=== PATIENT | female | born 1960 | race African-American/Black ===

== ENCOUNTER 2016-10-10 23:55 | Inpatient (IN) | payer BC ==
--- NOTE | 2016-10-11 00:52 | PDOC ---
History of Present Illness - General Chief Complaint: Shortness of Breath Stated Complaint: SOB/CHEST PAIN Time Seen by Provider: 10/11/16 00:51 History Source: Patient - History of Present Illness Initial Comments: 10/11/16 02:30 56 year old female c/o shortness of breath and chest pain that is worse in the last 2 days. reports chest pain " heaviness, my heart is hurting" patient reports that 3 weeks prior patient has cold like symptoms and fever which resolved. patient with history of CHF, hypothyroidism, pacemaker, hypercholesteremia, IDDM Past History - Past Medical History Allergies/Adverse Reactions: Allergies Allergy/AdvReac Type Severity Reaction Status Date / Time No Known Allergies Allergy Verified 08/12/15 23:45 Home Medications: Ambulatory Orders Amoxicillin/Potassium Clav [Augmentin 875-125 Tablet] 1 each PO BID 08/12/15 Aspirin [Eben Chewable] 81 mg PO DAILY 08/12/15 Atorvastatin Ca [Lipitor -] 10 mg PO HS 08/12/15 Carvedilol [Coreg -] 25 mg PO BID 08/12/15 Cholecalciferol (Vitamin D3) [Vitamin D3] 5,000 unit PO DAILY 08/12/15 Eplerenone [Inspra] 25 mg PO DAILY 08/12/15 Exenatide Microspheres [Bydureon Pen] 2 mg SQ WEEKLY 08/12/15 Furosemide [Lasix -] 40 mg PO DAILY 08/12/15 Insulin (LOG) Aspart [NovoLOG -] 0 unit SQ DAILY 08/12/15 Levothyroxine [Synthroid -] 75 mcg PO DAILY 08/12/15 Levothyroxine [Synthroid -] 75 mcg PO DAILY 08/12/15 Lisinopril 10 mg PO DAILY 08/12/15 Montelukast Na [Singulair -] 10 mg PO HS 08/12/15 Anemia: No Asthma: (bronchitis) Cancer: No Cardiac Disorders: Yes (decreased LVF) CVA: No COPD: No CHF: No Dementia: No Diabetes: Yes (insulin pump; diab retinopathy; macular edema) GI Disorders: Yes (hemorrrhoids; hernia) Disorders: No HTN: No Hypercholesterolemia: No Liver Disease: No Seizures: No Thyroid Disease: Yes (HYPO.) - Surgical History Abdominal Surgery: Yes Appendectomy: No Cardiac Surgery: Yes (defib placed 07/10/15 after viral infection) Cholecystectomy: No Lung Surgery: (PNEUMONIA AND BRONCHITIS 2015; NO SURGERIES) Neurologic Surgery: No Orthopedic Surgery: No - Immunization History Td Vaccination: No TDAP Vaccination: No Immunization Up to Date: Yes (flu and pna 2014) - Psycho/Social/Smoking Cessation Hx Anxiety: Yes Suicidal Ideation: No Smoking Status: No Smoking History: Never smoked Have you smoked in the past 12 months: No Number of Cigarettes Smoked Daily: 0 If you are a former smoker, when did you quit?: 10 yrs Hx Alcohol Use: No Drug/Substance Use Hx: No Substance Use Type: None Hx Substance Use Treatment: No *Physical Exam - Vital Signs 10/11/16 03:45 Last Vital Signs Temp Pulse Resp BP Pulse Ox 98.1 F 91 H 19 141/75 96 10/11/16 00:10 10/11/16 00:10 10/11/16 00:10 10/11/16 00:10 10/11/16 00:10 - Physical Exam General Appearance: Yes: Appropriately Dressed Respiratory/Chest: positive: Lungs Clear, Normal Breath Sounds Cardiovascular: positive: Regular Rhythm, Regular Rate. negative: S1, S2, Edema , JVD, Murmur, Bradycardia, Tachycardia, Diastolic Murmur, Systolic Murmur, Gallop/S3, Gallop/S4, Irregularly Irregular, Irregular, Other Gastrointestinal/Abdominal: positive: Normal Bowel Sounds, Soft Extremity: positive: Normal Capillary Refill, Normal Inspection, Normal Range of Motion Integumentary: positive: Normal Color, Dry, Warm Neurologic: positive: Fully Oriented, Alert, Normal Mood/Affect Heart Score/ECG Review - ECG Intrepretation Rhythm: Regular Rhythm Comment:: 10/11/16 02:31 NSR HRT 83 prolonged QT nonspecific t wave abnormality ED Treatment Course - LABORATORY CBC & Chemistry Diagram: 10/11/16 02:10 10/11/16 02:10 - RADIOLOGY Chest X-Ray Result: No Infiltrates Medical Decision Making - Medical Decision Making 10/11/16 03:51 A: chest pain P": cbc cmp cardiac enzyems chest xray d-dimer BNP 10/11/16 03:51 patient CTA neg for PE. patient signed out to Dr. Lugo for further management of care *DC/Admit/Observation/Transfer Diagnosis at time of Disposition: Chest pain Qualifiers: Chest pain type: unspecified Qualified Code(s): R07.9 - Chest pain, unspecified - Discharge Dispostion Admit: Yes - Referrals Referrals: STAFF,NOT ON [Primary Care Provider] -
[2016-10-11] MEDS ORDERED: ALBUTEROL SO4 2.5/IPRATROPIUM 0.5 INH SOL 3 ML VIAL.NEB. NEB ONE ×2 (02:09→20:06)
[2016-10-11 02:23] VITALS: BMI 35.0
[2016-10-11 02:23] LABS: BASOPHIL 0.7 % (0-2.0); EOSINOPHIL 1.2 % (0-4.5); MCH 26.9 pg (25.7-33.7); MCHC 32.5 g/dl (32.0-36.0); MEAN CELL VOLUME 82.7 fl (80-96); PLATELET COUNT 262 K/MM3 (134-434); RDW 15.8 % (11.6-15.6); WHITE BLOOD COUNT 8.9 K/mm3 (4.0-10.0)
[2016-10-11 02:36] LABS: INR 0.96 (0.82-1.09); PROTHROMBIN TIME (PATIENT) 10.6 SEC (9.98-11.88)
[2016-10-11 02:56] LABS: ALBUMIN 3.8 g/dl (3.4-5.0); ANION GAP 10 (8-16); BILIRUBIN,TOTAL 0.3 mg/dL (0.2-1.0); CALCIUM 8.7 mg/dL (8.5-10.1); CO2 25 mmol/L (21-32); GLUCOSE,RANDOM 144 mg/dL (74-106); MAGNESIUM 2.2 mg/dL (1.8-2.4); SGOT/AST 13 U/L (15-37); SGPT/ALT 28 U/L (12-78); TOT PROT 7.3 g/dl (6.4-8.2)
[2016-10-11 02:59] LABS: ALK PHOS 120 U/L (45-117); TROPONIN I < 0.02 ng/ml (0.00-0.05)
[2016-10-11] MEDS ORDERED: INDOMETHACIN 50 MG CAPSULE PO ONE (05:49)
[2016-10-11] MEDS ORDERED: ASPIRIN 81 MG CHEWABLE TABLETS PO ONE (05:49)
[2016-10-11] MEDS ORDERED: ASPIRIN 81 MG CHEWABLE TABLETS ONE (06:20)
--- NOTE | 2016-10-11 10:40 | PN ---
Progress Note (short form) - Note Progress Note: Chief Complaint: Events noted, notes reviewed, chest pain syndrome in a patient with known history of dilated non ischemic cardiomyopathy History of Present Illness: Seen and examined on telemetry. Full consult dictated Medications: See attached list Review of Systems - Review of Systems Constitutional: denies: Chills, Fever Cardiovascular: As noted above Respiratory: reports: Cough and Sputum Production Gastrointestinal: denies: Nausea, Vomiting, Diarrhea, Constipation or Abdominal Pain Musculoskeletal: No symptoms reported Neurological: denies: Dizziness or Headaches Vital Signs: Last Vital Signs Temp Pulse Resp BP Pulse Ox 98.4 F 87 18 134/77 95 10/11/16 07:13 10/11/16 07:13 10/11/16 07:13 10/11/16 07:13 10/11/16 07:13 Intake & Output 10/08/16 10/09/16 10/10/16 10/11/16 23:59 23:59 23:59 23:59 Weight 204 lb Constitutional: No Distress, Calm Neck: Supple Negative JVD Respiratory: Clear to A&P Bilaterally Cardiovascular: S1 S2 Regular Rate and Rhythm Grade 1/6 ADAN Gastrointestinal: Soft Benign Normal Bowel Sounds Ext: Negative Edema Lab Data: CBC, BMP 10/11/16 02:10 10/11/16 02:10 Troponin, BNP 10/11/16 02:10 Troponin I < 0.02 B-Natriuretic Peptide 140.55 H INR, PTT INR 0.96 (0.82-1.09) 10/11/16 02:10 Hepatic Panel Total Bilirubin 0.3 mg/dL (0.2-1.0) 10/11/16 02:10 AST 13 U/L (15-37) L 10/11/16 02:10 ALT 28 U/L (12-78) 10/11/16 02:10 Alkaline Phosphatase 120 U/L (45-117) H D 10/11/16 02:10 Albumin 3.8 g/dl (3.4-5.0) 10/11/16 02:10 Assessment/Plan ASSESSMENT: 1. Chest pain syndrome in a patient with known history of dilated non-ischemic cardiomyopathy, sub-endomyocardial ischemia in a dilated heart a differential 2. Dilated non-ischemic cardiomyopathy with chronic class I-II NYHA classification LV failure, compensated 3. HTN 4. DM 5. Hypercholesterolemia 6. Hypothyroidism PLAN: 1. Continue Coreg 2. Continue Entresto 3. Continue Lasix and Inspra 4. Continue Zocor 5. Attempt the addition of Ranexa considering the noted presentation 6. Continue ASA 7. Echocardiography to evaluate LV function and valvular function Kalyani Grant MD
[2016-10-11] MEDS ORDERED: EPLERENONE 25 MG TABLET PO SCH (11:00)
[2016-10-11] MEDS ORDERED: ASPIRIN 81 MG CHEWABLE TABLETS PO SCH (11:00)
[2016-10-11] MEDS: FUROSEMIDE 40 MG TABLET (FP) PO SCH (11:44)
[2016-10-11] MEDS: RANOLAZINE E.R. 500 MG TABLET (FP) PO SCH ×2 (11:44→22:14)
[2016-10-11] MEDS: CARVEDILOL 25 MG TABLET (FP) PO SCH ×2 (11:44→22:14)
[2016-10-11] MEDS: SACUBITRIL/VALSARTAN 24 MG-26 MG TABLET PO SCH ×2 (11:47→22:46)
--- NOTE | 2016-10-11 11:49 | HP ---
Admitting History and Physical - Primary Care Physician PCP: Dr Reol Lugo( [facility]) - Admission Chief Complaint: Chest pain/Fever 10 days/ Dilated cardiomyopathy/Asthma excerbation/ Decompensated CHF History of Present Illness: 56 year old female had travelled to [place] and had fever of 101 for 10 days, Pt was Rx there with Zithromax and Pt managed to come back but was having severe cough/ Bronchitis with Productuve yellow sputum with c/o shortness of breath and chest pain that is worse in the last 2 days. reports chest pain " heaviness, my heart is hurting" . Pt is still having chest pain/ Retrosternal hevy ness 11/26. Pain is more on coughing patient with history of CHF, hypothyroidism, pacemaker, hypercholesteremia, IDDM , S/P Hystrectomy, Colostomy/ closure, Obesity,S/P Cath at [facility]. History Source: Patient Limitations to Obtaining History: No Limitations - Past Medical History Cardiovascular: Yes: CHF, HTN, Other (Dilated cardiomyopathy, pacemaker) Pulmonary: Yes: Asthma, Bronchitis, Pneumonia Gastrointestinal: Yes: Other (Colostomy/ Closure) ...: No Endocrine: Yes: Diabetes Mellitus, Hypothyroidism - Past Surgical History Past Surgical History: Yes: Colostomy, Hysterectomy - Smoking History Smoking history: Never smoked Have you smoked in the past 12 months: No Aproximately how many cigarettes per day: 0 If you are a former smoker, when did you quit?: 10 yrs - Alcohol/Substance Use Hx Alcohol Use: No History of Substance Use: reports: None - Social History ADL: Independent Occupation: psychiatric technician History of Recent Travel: Yes ([place] and [place]) Home Medications - Allergies Allergies/Adverse Reactions: Allergies Allergy/AdvReac Type Severity Reaction Status Date / Time No Known Allergies Allergy Verified 08/12/15 23:45 - Home Medications Home Medications: Ambulatory Orders Aspirin [Eben Chewable] 81 mg PO DAILY 08/12/15 Carvedilol [Coreg -] 25 mg PO BID 08/12/15 Cholecalciferol (Vitamin D3) [Vitamin D3] 5,000 unit PO DAILY 08/12/15 Eplerenone [Inspra] 25 mg PO DAILY 08/12/15 Exenatide Microspheres [Bydureon Pen] 2 mg SQ WEEKLY 08/12/15 Furosemide [Lasix -] 40 mg PO DAILY 08/12/15 Insulin (LOG) Aspart [NovoLOG -] 0 unit SQ DAILY 08/12/15 Levothyroxine [Synthroid -] 75 mcg PO DAILY 08/12/15 Lisinopril 10 mg PO DAILY 08/12/15 Montelukast Na [Singulair -] 10 mg PO HS 08/12/15 Simvastatin 20 mg PO HS 10/11/16 Family Disease History - Family Disease History Family Disease History: Heart Disease: Father (Cirrhosis, CAD), Respiratory: Mother (Chronic Emphysema), Other: Father Review of Systems - Review of Systems Constitutional: reports: Fever, Malaise, Weakness Respiratory: denies: Exercise Intolerance (Pt had Fever of 101 for 10 days improved with Mildly with Zithromax from [place] Still Severe cough with SOB/ Wheezing) Gastrointestinal: reports: Other (S/P colostomy and closure) Genitourinary: reports: No Symptoms Breasts: reports: No Symptoms Reported Musculoskeletal: reports: Back Pain Neurological: reports: No Symptoms Physical Examination Vital Signs: Vital Signs Temperature 98.8 F 10/11/16 08:58 Pulse Rate 80 10/11/16 08:58 Respiratory Rate 20 10/11/16 08:58 Blood Pressure 120/68 10/11/16 08:58 O2 Sat by Pulse Oximetry (%) 97 10/11/16 08:58 Constitutional: Yes: No Distress Eyes: Yes: Conjunctiva Clear, EOM Intact HENT: Yes: Atraumatic, Normocephalic Neck: Yes: Supple, Trachea Midline Cardiovascular: Yes: Regular Rate and Rhythm Respiratory: Yes: Regular, CTA Bilaterally, Wheezes (Mild wheezing), Other (Pt cough /Wheezing Improved with nebulized RX) Gastrointestinal: Yes: Normal Bowel Sounds, Soft Edema: No Neurological: Yes: Alert, Cran Nerves II-XII Intact Problem List - Problems (1) Chest pain Code(s): R07.9 - CHEST PAIN, UNSPECIFIED Qualifiers: Chest pain type: unspecified Qualified Code(s): R07.9 - Chest pain, unspecified (2) Chronic systolic (congestive) heart failure Code(s): I50.22 - CHRONIC SYSTOLIC (CONGESTIVE) HEART FAILURE (3) Cardiomyopathy Code(s): I42.9 - CARDIOMYOPATHY, UNSPECIFIED (4) Acute bronchitis Code(s): J20.9 - ACUTE BRONCHITIS, UNSPECIFIED (5) Asthma exacerbation Code(s): J45.901 - UNSPECIFIED ASTHMA WITH (ACUTE) EXACERBATION (6) Diabetes mellitus, insulin dependent (IDDM), uncontrolled Code(s): E10.65 - TYPE 1 DIABETES MELLITUS WITH HYPERGLYCEMIA (7) Hypothyroid Code(s): E03.9 - HYPOTHYROIDISM, UNSPECIFIED Qualifiers: Hypothyroidism type: unspecified Qualified Code(s): E03.9 - Hypothyroidism, unspecified (8) Obesity Code(s): E66.9 - OBESITY, UNSPECIFIED (9) Pneumonia Code(s): J18.9 - PNEUMONIA, UNSPECIFIED ORGANISM Assessment/Plan (1) Chest painR/O ACS/PE/Teitz syndrome: CT Angio Negative Code(s): R07.9 - CHEST PAIN, UNSPECIFIED Qualifiers: Chest pain type: unspecified Qualified Code(s): R07.9 - Chest pain, unspecified (2) Chronic systolic (congestive) heart failure Code(s): I50.22 - CHRONIC SYSTOLIC (CONGESTIVE) HEART FAILURE (3) Cardiomyopathy/ S/P Cath Code(s): I42.9 - CARDIOMYOPATHY, UNSPECIFIED (4) Acute bronchitis: ID consult Pt is patially Rx at [place] still has residual severe cough and productive Yellow sputum On Unasyn Now Code(s): J20.9 - ACUTE BRONCHITIS, UNSPECIFIED (5) Asthma exacerbation: Secondary to Pneumonia partially Rx at [place] Visit Recently Code(s): J45.901 - UNSPECIFIED ASTHMA WITH (ACUTE) EXACERBATION (6) Diabetes mellitus, insulin dependent (IDDM), uncontrolled Code(s): E10.65 - TYPE 1 DIABETES MELLITUS WITH HYPERGLYCEMIA (7) Hypothyroid Code(s): E03.9 - HYPOTHYROIDISM, UNSPECIFIED Qualifiers: Hypothyroidism type: unspecified Qualified Code(s): E03.9 - Hypothyroidism, unspecified (8) Obesity Code(s): E66.9 - OBESITY, UNSPECIFIED (9) Pneumonia Code(s): J18.9 - PNEUMONIA, UNSPECIFIED ORGANISM
--- NOTE | 2016-10-11 13:16 | CONS ---
DATE OF CONSULTATION: 10/11/2016 REQUESTING PHYSICIAN: Castillo Lugo MD CHIEF COMPLAINT: Chest discomfort. A 56-year-old, morbidly obese female of descent with known history of dilated nonischemic cardiomyopathy post viral syndrome (right and left cardiac catheterization was performed at [facility] October 29, 2014), hypertensive cardiovascular disease, diabetes mellitus, hypercholesterolemia, who presented to [facility] with chest discomfort which has been noted for the last several days. Chest discomfort described as heaviness without any radiation or associated symptomatology other than residual cough which has been noted post an upper respiratory tract infection. Patient reports dyspnea with moderate physical exertion. Patient denies any orthopnea, paroxysmal nocturnal dyspnea, or peripheral edema. Patient denies any palpitations, dizziness, lightheadedness, or syncope. Patient reports fatigue and tiredness. Patient just returned from a trip to [place]. In the emergency room, CTA was performed which was negative for pulmonary thromboembolism. PAST MEDICAL HISTORY: Dilated nonischemic cardiomyopathy with class I to II [place] Heart Association classification left ventricular failure, right and left cardiac catheterization coronary angiography performed October 29, 2014, hypertension cardiovascular disease, diabetes mellitus, hypercholesterolemia. PAST SURGICAL HISTORY: Myomectomies x2, hysterectomy complicated by intraabdominal abscess. SOCIAL HISTORY: Denies smoking. FAMILY HISTORY: No family history of premature coronary artery disease. ALLERGIES: None reported. MEDICAL THERAPY AT HOME: Included aspirin 81 mg once a day, insulin as prescribed, Coreg 25 mg twice a day, Entresto 24/26 mg twice a day, eplerenone 25 mg once a day, Lasix 40 mg once a day, Singulair 10 mg once a day, simvastatin 20 mg once a day, Synthroid for hypothyroidism 75 mcg once a day, vitamin D 5000 international units once daily. REVIEW OF SYSTEMS: Head and Neck: Denies headache, photophobia, blurring of vision. Respiratory: Reports cough productive of clear sputum. Cardiovascular: As noted above. Gastrointestinal: Denies nausea, vomiting, diarrhea, abdominal discomfort. Genitourinary: No symptoms reported. Musculoskeletal: No symptoms reported. PHYSICAL EXAMINATION: Vital Signs: Blood pressure is 134/77 mmHg, pulse rate is 87 beats per minute. Head and Neck: Pupils equal and reactive to light and accommodation. Extraocular muscles are intact. Anicteric sclerae. Negative JVD. No bruit appreciated. Chest: Clear to auscultation and percussion. Cardiovascular: S1, S2 regular. Grade 1/6 systolic ejection murmur. No clicks or gallops. Abdomen: Soft, benign. Active bowel sounds. Extremities: Negative edema. Intact distal pulses. No calf tenderness. Electrocardiogram reveals sinus rhythm with increased voltage and nonspecific T-wave abnormality. Chest x-ray report was noted. CBC revealed white cell count 8.9, hemoglobin 12.2, platelet count 262. Basic metabolic profile revealed sodium 142, potassium 4.0, BUN of 14, creatinine 1.0, glucose 144. B type natriuretic peptide was 140.55. Troponin-I less than 0.02. ASSESSMENT: 1. Chest pain syndrome in a patient with known history of dilated and ischemic cardiomyopathy. Subendocardial myocardial ischemia and a dilated heart to be considered as the differential. 2. Dilated nonischemic cardiomyopathy with chronic class I to II [place] Heart Association classification left ventricular failure, compensated. 3. Hypertensive cardiovascular disease. 4. Diabetes mellitus. 5. Hypercholesterolemia. 6. Hypothyroidism. PLAN: 1. Continuation of Coreg therapy. 2. Continuation of Entresto therapy. 3. Continuation of Lasix and Inspra therapy. 4. Continuation of Zocor or equivalent statin therapy. 5. Attempt the addition of Ranexa therapy, considering the above-noted clinical presentation. 6. Continuation of aspirin therapy. 7. Echocardiography for evaluation of left ventricular size and function and also evaluation of valvular function. Thank you for the kind referral. CLIFFORD BERKOWITZ M.D. [id number]
--- NOTE | 2016-10-11 20:29 | CONSULT ---
Consult Consult Specialty:: infectious diseases Referred by:: DR Vegas Reason for Consultation:: pneumonia,bronchitis - History of Present Illness Chief Complaint: cough,chest pain History of Present Illness: 56 year old female c/o shortness of breath and chest pain that is worse in the last 2 days. reports chest pain " heaviness, my heart is hurting" patient reports that 3 weeks prior patient has cold like symptoms and fever which resolved. patient with history of CHF, hypothyroidism, pacemaker, hypercholesteremia, IDDM according to the patient she had travelled back to [place] and fell immediately sick with high fevers and cough with yellowish sputum production patient initially took motrin and tylenolol but her symptoms did not resolve. she then started zithromax and started feeling better and fever resolved. patient mentions that she has again started to cough but denies fever or sputum production but mentions that her chest is hurting she has hoarse cough and still ahs pain in the chest - History Source History Provided By: Patient Limitations to Obtaining History: No Limitations - Past Medical History Cardio/Vascular: Yes: CHF, HTN Pulmonary: Yes: Asthma, Bronchitis, Pneumonia Gastrointestinal: Yes: Other ...: No Endocrine: Yes: Diabetes Mellitus, Hypothyroidism - Past Surgical History Past Surgical History: Yes: Colostomy, Hysterectomy - Alcohol/Substance Use Hx Alcohol Use: No History of Substance Use: reports: None - Smoking History Smoking history: Never smoked Have you smoked in the past 12 months: No Aproximately how many cigarettes per day: 0 If you are a former smoker, when did you quit?: 10 yrs - Social History ADL: Independent Occupation: machine operator farmworker History of Recent Travel: Yes ([place] and [place]) Home Medications - Allergies Allergies/Adverse Reactions: Allergies Allergy/AdvReac Type Severity Reaction Status Date / Time No Known Allergies Allergy Verified 08/12/15 23:45 - Home Medications Home Medications: Ambulatory Orders Aspirin [Eben Chewable] 81 mg PO DAILY 08/12/15 Carvedilol [Coreg -] 25 mg PO BID 08/12/15 Cholecalciferol (Vitamin D3) [Vitamin D3] 5,000 unit PO DAILY 08/12/15 Eplerenone [Inspra] 25 mg PO DAILY 08/12/15 Exenatide Microspheres [Bydureon Pen] 2 mg SQ WEEKLY 08/12/15 Furosemide [Lasix -] 40 mg PO DAILY 08/12/15 Insulin (LOG) Aspart [NovoLOG -] 0 unit SQ DAILY 08/12/15 Levothyroxine [Synthroid -] 75 mcg PO DAILY 08/12/15 Lisinopril 10 mg PO DAILY 08/12/15 Montelukast Na [Singulair -] 10 mg PO HS 08/12/15 Simvastatin 20 mg PO HS 10/11/16 Family Disease History - Family Disease History Family Disease History: Heart Disease: Father (Cirrhosis, CAD), Respiratory: Mother (Chronic Emphysema), Other: Father Review of Systems - Review of Systems Constitutional: reports: Weakness, Other Eyes: reports: No Symptoms HENT: reports: No Symptoms Neck: reports: No Symptoms Cardiovascular: reports: Chest Pain Respiratory: reports: Cough, SOB, Other Gastrointestinal: reports: No Symptoms Genitourinary: reports: No Symptoms Musculoskeletal: reports: No Symptoms Integumentary: reports: No Symptoms Neurological: reports: No Symptoms Endocrine: reports: No Symptoms Hematology/Lymphatic: reports: No Symptoms Psychiatric: reports: No Symptoms Physical Exam Vital Signs: Vital Signs Temperature 98.0 F 10/11/16 17:00 Pulse Rate 95 H 10/11/16 17:00 Respiratory Rate 20 10/11/16 17:00 Blood Pressure 129/70 10/11/16 17:00 O2 Sat by Pulse Oximetry (%) 97 10/11/16 08:58 Constitutional: Yes: Well Nourished, Obese Eyes: Yes: Conjunctiva Clear HENT: Yes: Atraumatic, Normocephalic Neck: Yes: Supple, Trachea Midline Cardiovascular: Yes: Regular Rate and Rhythm Respiratory: Yes: Poor Air Entry, Rhonchi Gastrointestinal: Yes: Normal Bowel Sounds, Soft Musculoskeletal: Yes: WNL Extremities: Yes: WNL Neurological: Yes: Alert, Oriented Psychiatric: Yes: Alert, Oriented Imaging - Results Chest X-ray: Report Reviewed, Image Reviewed Cat Scan: Report Reviewed, Image Reviewed Assessment/Plan chest pain r/o pneumonia cough this could be lingering pneumonia or patient is having bronchitits maxim will start patient on iv abx will await for cardiology will see how patient does and then decide about abx if it can be switched to oral
[2016-10-11] MEDS ORDERED: PT OWN MED DRAWER 7, Y5N ONE (21:01)
[2016-10-11] MEDS: AMPICILLIN NA/SULBACTAM NA 3 GM in SODIUM CHLORIDE 100 ML IVPB SCH (22:11)
[2016-10-11] MEDS: ATORVASTATIN CA 10 MG TABLET (FP) PO SCH ×2 (22:14→22:19)
[2016-10-11] MEDS: MONTELUKAST NA 10 MG TABLET PO SCH (22:14)
[2016-10-11] MEDS: INDOMETHACIN 25 MG CAPSULE PO SCH (22:14)
[2016-10-12] MEDS: ALBUTEROL SO4 2.5/IPRATROPIUM 0.5 INH SOL 3 ML VIAL.NEB. NEB SCH ×5 (00:17→23:37)
[2016-10-12] MEDS: AMPICILLIN NA/SULBACTAM NA 3 GM in SODIUM CHLORIDE 100 ML IVPB SCH ×3 (02:30→17:16)
[2016-10-12] MEDS: LEVOTHYROXINE NA 75 MCG TABLET (FP) PO SCH (06:20)
[2016-10-12 08:08] LABS: BASOPHIL 0.5 % (0-2.0); EOSINOPHIL 1.2 % (0-4.5); MCH 26.4 pg (25.7-33.7); MEAN CELL VOLUME 82.5 fl (80-96); MEAN PLT VOLUME 9.8 fl (7.5-11.1); NEUTROPHILS 59.5 % (42.8-82.8); PLATELET COUNT 246 K/MM3 (134-434); RDW 15.8 % (11.6-15.6); WHITE BLOOD COUNT 7.1 K/mm3 (4.0-10.0)
--- NOTE | 2016-10-12 08:16 | EKG ---
Test Reason : Blood Pressure : / mmHG Vent. Rate : 059 BPM Atrial Rate : 059 BPM P-R Int : 170 ms QRS Dur : 096 ms QT Int : 458 ms P-R-T Axes : 040 003 -18 degrees QTc Int : 453 ms SINUS BRADYCARDIA MODERATE VOLTAGE CRITERIA FOR LVH, MAY BE NORMAL VARIANT NONSPECIFIC T WAVE ABNORMALITY ABNORMAL ECG WHEN COMPARED WITH ECG OF 13-AUG-2015 00:33, VENT. RATE HAS DECREASED BY 31 BPM T WAVE VARIATION Confirmed by KADEN LIAO MD ([id number]) on 10/12/2016 8:15:53 AM Referred By: FABIANA ARAUJO Confirmed By:KADEN LIAO MD
--- NOTE | 2016-10-12 08:24 | EKG ---
Test Reason : Blood Pressure : / mmHG Vent. Rate : 083 BPM Atrial Rate : 083 BPM P-R Int : 186 ms QRS Dur : 094 ms QT Int : 392 ms P-R-T Axes : 062 -12 045 degrees QTc Int : 460 ms NORMAL SINUS RHYTHM MODERATE VOLTAGE CRITERIA FOR LVH, MAY BE NORMAL VARIANT NONSPECIFIC T WAVE ABNORMALITY PROLONGED QT ABNORMAL ECG WHEN COMPARED WITH ECG OF 13-AUG-2015 00:33, T WAVE VARIATION Confirmed by YANNI PEGUERO, KADEN ([id number]) on 10/12/2016 8:23:34 AM Referred By: Confirmed By:KADEN LIAO MD
[2016-10-12 09:11] LABS: ALBUMIN 3.7 g/dl (3.4-5.0); BILIRUBIN,TOTAL 0.4 mg/dL (0.2-1.0); CALCIUM 8.9 mg/dL (8.5-10.1); COCKROFT - GAULT 85.3995; CREATININE 1.1 mg/dL (0.55-1.02); TOT PROT 6.9 g/dl (6.4-8.2)
[2016-10-12] MEDS: ASPIRIN COATED 81 MG TABLET.EC PO SCH (09:23)
[2016-10-12] MEDS: CARVEDILOL 25 MG TABLET (FP) PO SCH ×2 (09:23→21:32)
[2016-10-12] MEDS: RANOLAZINE E.R. 500 MG TABLET (FP) PO SCH ×2 (09:24→21:32)
[2016-10-12] MEDS: SACUBITRIL/VALSARTAN 24 MG-26 MG TABLET PO SCH ×2 (09:24→22:23)
[2016-10-12] MEDS: EPLERENONE 25 MG TABLET PO SCH (09:24)
[2016-10-12] MEDS: INDOMETHACIN 25 MG CAPSULE PO SCH (09:24)
[2016-10-12] MEDS: FUROSEMIDE 40 MG TABLET (FP) PO SCH (09:24)
--- NOTE | 2016-10-12 09:24 | PN ---
Progress Note, Physician History of Present Illness: Chest pain and dyspnea resolving. - Current Medication List Current Medications: Active Medications Albuterol/Ipratropium (Duoneb -) 1 amp NEB QIDR [facility] Stop: 10/19/16 00:00 Last Admin: 10/12/16 07:03 Dose: 1 amp Aspirin (Ecotrin -) 81 mg PO DAILY [facility] Atorvastatin Calcium (Lipitor -) 10 mg PO [facility] Last Admin: 10/11/16 22:19 Dose: Not Given Carvedilol (Coreg -) 25 mg PO BID [facility] Last Admin: 10/11/16 22:14 Dose: 25 mg Eplerenone (Eplerenone) 25 mg PO DAILY [facility] Furosemide (Lasix -) 40 mg PO DAILY [facility] Last Admin: 10/11/16 11:44 Dose: 40 mg Ampicillin Sodium/Sulbactam (Sodium 3 gm/ Sodium Chloride) 100 mls @ 200 mls/ hr IVPB Q8H-IV [facility] Last Admin: 10/12/16 02:30 Dose: 200 mls/hr Indomethacin (Indocin -) 25 mg PO BID [facility] Last Admin: 10/11/16 22:14 Dose: 25 mg Levothyroxine Sodium (Synthroid -) 75 mcg PO DAILY@0700 [facility] Last Admin: 10/12/16 06:20 Dose: 75 mcg Montelukast Sodium (Singulair -) 10 mg PO [facility] Last Admin: 10/11/16 22:14 Dose: 10 mg Ranolazine (Ranexa -) 500 mg PO BID [facility] Last Admin: 10/11/16 22:14 Dose: 500 mg - Objective Vital Signs: Vital Signs Temperature 98.1 F 10/12/16 06:44 Pulse Rate 63 10/12/16 06:44 Respiratory Rate 18 10/12/16 06:44 Blood Pressure 130/66 10/12/16 06:44 O2 Sat by Pulse Oximetry (%) 99 10/11/16 20:36 Constitutional: Yes: No Distress, Calm Neck: Yes: Supple Cardiovascular: Yes: Regular Rate and Rhythm Respiratory: Yes: Regular, CTA Bilaterally Gastrointestinal: Yes: Normal Bowel Sounds, Soft, Abdomen, Obese Edema: No Labs: CBC, BMP 10/12/16 05:40 10/12/16 05:40 INR, PTT INR 0.96 (0.82-1.09) 10/11/16 02:10 - ....Imaging EKG: Report Reviewed (Tele: SR) Problem List - Problems (1) Chest pain Code(s): R07.9 - CHEST PAIN, UNSPECIFIED Qualifiers: Chest pain type: unspecified Qualified Code(s): R07.9 - Chest pain, unspecified (2) Diabetes mellitus Code(s): E11.9 - TYPE 2 DIABETES MELLITUS WITHOUT COMPLICATIONS Qualifiers: Diabetes mellitus type: type 2 (3) HTN (hypertension) Code(s): I10 - ESSENTIAL (PRIMARY) HYPERTENSION Qualifiers: Hypertension type: essential hypertension Qualified Code(s): I10 - Essential (primary) hypertension (4) Hypothyroid Code(s): E03.9 - HYPOTHYROIDISM, UNSPECIFIED Qualifiers: Hypothyroidism type: unspecified Qualified Code(s): E03.9 - Hypothyroidism, unspecified (5) Chronic systolic (congestive) heart failure Code(s): I50.22 - CHRONIC SYSTOLIC (CONGESTIVE) HEART FAILURE Assessment/Plan 10/11/3016 Echo: Nl LV size with severely decreased LV fxn, unable to assess valve pathology 1. Chest pain syndrome in a patient with known history of non-ischemic cardiomyopathy with subendomyocardial ischemia injury 2. Non-ischemic cardiomyopathy with chronic class I-II NYHA classification LV failure s/p ICD, compensated 3. HTN 4. DM 5. Hypercholesterolemia 6. Hypothyroidism PLAN: 1. Continue Coreg 25 bid 2. Continue Entresto 24/26 bid with uptitration as tolerated 3. Continue Lasix 40 qd and Inspra 25 qd 4. Continue Lipitor 10 qhs 5. Ranexa 500 bid added considering the noted presentation 6. Continue ASA 81 qd 7. Recommend d/c Indocin, presentation inconsistent with pericarditis 8. Continue to ambulate and discharge planning, f/u with Dr. Sims at [facility].
--- NOTE | 2016-10-12 11:51 | EKG ---
Test Reason : Blood Pressure : / mmHG Vent. Rate : 077 BPM Atrial Rate : 077 BPM P-R Int : 174 ms QRS Dur : 094 ms QT Int : 408 ms P-R-T Axes : 062 -05 068 degrees QTc Int : 461 ms NORMAL SINUS RHYTHM VOLTAGE CRITERIA FOR LEFT VENTRICULAR HYPERTROPHY NONSPECIFIC T WAVE ABNORMALITY PROLONGED QT ABNORMAL ECG WHEN COMPARED WITH ECG OF 11-OCT-2016 11:49, NO SIGNIFICANT CHANGE WAS FOUND Confirmed by JD PHAN MD ([id number]) on 10/12/2016 11:50:37 AM Referred By: Rona SAWYER Confirmed By:JD PHAN MD
--- NOTE | 2016-10-12 12:43 | PN ---
Progress Note, Physician History of Present Illness: patient sounding better cough less no complaints - Current Medication List Current Medications: Active Medications Albuterol/Ipratropium (Duoneb -) 1 amp NEB QIDR [facility] Stop: 10/19/16 00:00 Last Admin: 10/12/16 11:42 Dose: 1 amp Aspirin (Ecotrin -) 81 mg PO DAILY [facility] Last Admin: 10/12/16 09:23 Dose: 81 mg Atorvastatin Calcium (Lipitor -) 10 mg PO [facility] Last Admin: 10/11/16 22:19 Dose: Not Given Carvedilol (Coreg -) 25 mg PO BID [facility] Last Admin: 10/12/16 09:23 Dose: 25 mg Eplerenone (Eplerenone) 25 mg PO DAILY [facility] Last Admin: 10/12/16 09:24 Dose: 25 mg Furosemide (Lasix -) 40 mg PO DAILY [facility] Last Admin: 10/12/16 09:24 Dose: 40 mg Ampicillin Sodium/Sulbactam (Sodium 3 gm/ Sodium Chloride) 100 mls @ 200 mls/ hr IVPB Q8H-IV [facility] Last Admin: 10/12/16 09:25 Dose: 200 mls/hr Levothyroxine Sodium (Synthroid -) 75 mcg PO DAILY@0700 [facility] Last Admin: 10/12/16 06:20 Dose: 75 mcg Montelukast Sodium (Singulair -) 10 mg PO [facility] Last Admin: 10/11/16 22:14 Dose: 10 mg Ranolazine (Ranexa -) 500 mg PO BID [facility] Last Admin: 10/12/16 09:24 Dose: 500 mg - Objective Vital Signs: Vital Signs Temperature 98 F 10/12/16 10:00 Pulse Rate 84 10/12/16 10:00 Respiratory Rate 20 10/12/16 10:00 Blood Pressure 139/85 10/12/16 10:00 O2 Sat by Pulse Oximetry (%) 97 10/12/16 09:00 Constitutional: Yes: No Distress, Calm Cardiovascular: Yes: Regular Rate and Rhythm Respiratory: Yes: Regular, Rhonchi Gastrointestinal: Yes: Normal Bowel Sounds, Soft Musculoskeletal: Yes: WNL Extremities: Yes: WNL Integumentary: Yes: WNL Neurological: Yes: Alert, Oriented Psychiatric: Yes: Alert, Oriented Labs: CBC, BMP 10/12/16 05:40 10/12/16 05:40 INR, PTT INR 0.96 (0.82-1.09) 10/11/16 02:10 Assessment/Plan chest pain r/o pneumonia cough this could be lingering pneumonia or patient is having bronchitits maxim continue iv abx will decide tomorrow if she can be switched to oral
--- NOTE | 2016-10-12 18:13 | PN ---
Progress Note, Physician Chief Complaint: Chest pain/Fever 10 days/ Dilated cardiomyopathy/Asthma excerbation/ Decompensated CHF History of Present Illness: 56 year old female had travelled to [place] and had fever of 101 for 10 days, Pt was Rx there with Zithromax and Pt managed to come back but was having severe cough/ Bronchitis with Productuve yellow sputum with c/o shortness of breath and chest pain that is worse in the last 2 days. reports chest pain " heaviness, my heart is hurting" . Pt is still having chest pain/ Retrosternal hevy ness 11/26. Pain is more on coughing patient with history of CHF, hypothyroidism, pacemaker, hypercholesteremia, IDDM , S/P Hystrectomy, Colostomy/ closure, Obesity,S/P Cath at [facility]. - Current Medication List Current Medications: Active Medications Albuterol/Ipratropium (Duoneb -) 1 amp NEB QIDR [facility] Stop: 10/19/16 00:00 Last Admin: 10/12/16 11:42 Dose: 1 amp Aspirin (Ecotrin -) 81 mg PO DAILY [facility] Last Admin: 10/12/16 09:23 Dose: 81 mg Atorvastatin Calcium (Lipitor -) 10 mg PO [facility] Last Admin: 10/11/16 22:19 Dose: Not Given Carvedilol (Coreg -) 25 mg PO BID [facility] Last Admin: 10/12/16 09:23 Dose: 25 mg Eplerenone (Eplerenone) 25 mg PO DAILY [facility] Last Admin: 10/12/16 09:24 Dose: 25 mg Furosemide (Lasix -) 40 mg PO DAILY [facility] Last Admin: 10/12/16 09:24 Dose: 40 mg Ampicillin Sodium/Sulbactam (Sodium 3 gm/ Sodium Chloride) 100 mls @ 200 mls/ hr IVPB Q8H-IV [facility] Last Admin: 10/12/16 17:16 Dose: 200 mls/hr Levothyroxine Sodium (Synthroid -) 75 mcg PO DAILY@0700 [facility] Last Admin: 10/12/16 06:20 Dose: 75 mcg Montelukast Sodium (Singulair -) 10 mg PO HS [facility] Last Admin: 10/11/16 22:14 Dose: 10 mg Ranolazine (Ranexa -) 500 mg PO BID [facility] Last Admin: 10/12/16 09:24 Dose: 500 mg - Objective Vital Signs: Vital Signs Temperature 97.1 F L 10/12/16 17:00 Pulse Rate 91 H 10/12/16 17:00 Respiratory Rate 20 10/12/16 17:00 Blood Pressure 149/81 10/12/16 17:00 O2 Sat by Pulse Oximetry (%) 97 10/12/16 09:00 Constitutional: Yes: Well Nourished, Anxious Eyes: Yes: Conjunctiva Clear, EOM Intact HENT: Yes: Atraumatic, Normocephalic Neck: Yes: Supple, Trachea Midline Cardiovascular: Yes: Regular Rate and Rhythm, S1, S2 Respiratory: Yes: Regular, CTA Bilaterally, Other (Mild wheezing with Cough with chest discomfort 11/26) Gastrointestinal: Yes: Normal Bowel Sounds, Soft Edema: No Peripheral Pulses WNL: Yes Labs: CBC, BMP 10/12/16 05:40 10/12/16 05:40 INR, PTT INR 0.96 (0.82-1.09) 10/11/16 02:10 Problem List - Problems (1) Chest pain Code(s): R07.9 - CHEST PAIN, UNSPECIFIED Qualifiers: Chest pain type: unspecified Qualified Code(s): R07.9 - Chest pain, unspecified (2) Chronic systolic (congestive) heart failure Code(s): I50.22 - CHRONIC SYSTOLIC (CONGESTIVE) HEART FAILURE (3) Cardiomyopathy Code(s): I42.9 - CARDIOMYOPATHY, UNSPECIFIED (4) Acute bronchitis Code(s): J20.9 - ACUTE BRONCHITIS, UNSPECIFIED (5) Asthma exacerbation Code(s): J45.901 - UNSPECIFIED ASTHMA WITH (ACUTE) EXACERBATION (6) Diabetes mellitus, insulin dependent (IDDM), uncontrolled Code(s): E10.65 - TYPE 1 DIABETES MELLITUS WITH HYPERGLYCEMIA (7) Hypothyroid Code(s): E03.9 - HYPOTHYROIDISM, UNSPECIFIED Qualifiers: Hypothyroidism type: unspecified Qualified Code(s): E03.9 - Hypothyroidism, unspecified (8) Obesity Code(s): E66.9 - OBESITY, UNSPECIFIED (9) Pneumonia Code(s): J18.9 - PNEUMONIA, UNSPECIFIED ORGANISM Assessment/Plan (1) Chest painR/O ACS/PE/Teitz syndrome: CT Angio Negative Code(s): R07.9 - CHEST PAIN, UNSPECIFIED Qualifiers: Chest pain type: unspecified Qualified Code(s): R07.9 - Chest pain, unspecified (2) Chronic systolic (congestive) heart failure Code(s): I50.22 - CHRONIC SYSTOLIC (CONGESTIVE) HEART FAILURE (3) Cardiomyopathy/ S/P Cath Code(s): I42.9 - CARDIOMYOPATHY, UNSPECIFIED (4) Acute bronchitis: ID consult Pt is patially Rx at [place] still has residual severe cough and productive Yellow sputum On Unasyn Now Code(s): J20.9 - ACUTE BRONCHITIS, UNSPECIFIED (5) Asthma exacerbation: Secondary to Pneumonia partially Rx at [place] Visit Recently Code(s): J45.901 - UNSPECIFIED ASTHMA WITH (ACUTE) EXACERBATION (6) Diabetes mellitus, insulin dependent (IDDM), uncontrolled Code(s): E10.65 - TYPE 1 DIABETES MELLITUS WITH HYPERGLYCEMIA (7) Hypothyroid Code(s): E03.9 - HYPOTHYROIDISM, UNSPECIFIED Qualifiers: Hypothyroidism type: unspecified Qualified Code(s): E03.9 - Hypothyroidism, unspecified (8) Obesity Code(s): E66.9 - OBESITY, UNSPECIFIED (9) Pneumonia Code(s): J18.9 - PNEUMONIA, UNSPECIFIED ORGANISM
[2016-10-12] MEDS ORDERED: NOVOLOG U INSULIN SQ SCH (18:45)
[2016-10-12] MEDS ORDERED: PT OWN MED DRAWER 7, Y5N ONE (21:29)
[2016-10-12] MEDS: ATORVASTATIN CA 10 MG TABLET (FP) PO SCH (21:32)
[2016-10-12] MEDS: MONTELUKAST NA 10 MG TABLET PO SCH (21:32)
[2016-10-12] MEDS: predniSONE 10 MG TABLET (UD) PO SCH (21:32)
[2016-10-13] MEDS ORDERED: PT OWN MED DRAWER 7, Y5N ONE ×2 (01:24→22:27)
[2016-10-13] MEDS: AMPICILLIN NA/SULBACTAM NA 3 GM in SODIUM CHLORIDE 100 ML IVPB SCH ×2 (02:24→08:59)
[2016-10-13] MEDS: LEVOTHYROXINE NA 75 MCG TABLET (FP) PO SCH (06:24)
[2016-10-13] MEDS: ALBUTEROL SO4 2.5/IPRATROPIUM 0.5 INH SOL 3 ML VIAL.NEB. NEB SCH ×4 (07:00→23:20)
[2016-10-13] MEDS: ASPIRIN COATED 81 MG TABLET.EC PO SCH (08:59)
[2016-10-13] MEDS: predniSONE 10 MG TABLET (UD) PO SCH ×2 (08:59→22:41)
[2016-10-13] MEDS: CARVEDILOL 25 MG TABLET (FP) PO SCH ×2 (08:59→21:44)
[2016-10-13] MEDS: RANOLAZINE E.R. 500 MG TABLET (FP) PO SCH (08:59)
[2016-10-13] MEDS: EPLERENONE 25 MG TABLET PO SCH (08:59)
[2016-10-13] MEDS: FUROSEMIDE 40 MG TABLET (FP) PO SCH (08:59)
[2016-10-13] MEDS: PANTOPRAZOLE 20 MG TABLET (FP) PO SCH (08:59)
[2016-10-13] MEDS: SACUBITRIL/VALSARTAN 24 MG-26 MG TABLET PO SCH ×2 (09:00→22:41)
--- NOTE | 2016-10-13 11:19 | PN ---
Progress Note, Physician History of Present Illness: Chest pain exacerbated after cough, denies dyspnea. - Current Medication List Current Medications: Active Medications Albuterol/Ipratropium (Duoneb -) 1 amp NEB QIDR [facility] Stop: 10/19/16 00:00 Last Admin: 10/13/16 07:00 Dose: 1 amp Aspirin (Ecotrin -) 81 mg PO DAILY [facility] Last Admin: 10/13/16 08:59 Dose: 81 mg Atorvastatin Calcium (Lipitor -) 10 mg PO [facility] Last Admin: 10/12/16 21:32 Dose: Not Given Carvedilol (Coreg -) 25 mg PO BID [facility] Last Admin: 10/13/16 08:59 Dose: 25 mg Eplerenone (Eplerenone) 25 mg PO DAILY [facility] Last Admin: 10/13/16 08:59 Dose: 25 mg Furosemide (Lasix -) 40 mg PO DAILY [facility] Last Admin: 10/13/16 08:59 Dose: 40 mg Ampicillin Sodium/Sulbactam (Sodium 3 gm/ Sodium Chloride) 100 mls @ 200 mls/ hr IVPB Q8H-IV [facility] Last Admin: 10/13/16 08:59 Dose: 200 mls/hr Levothyroxine Sodium (Synthroid -) 75 mcg PO DAILY@0700 [facility] Last Admin: 10/13/16 06:24 Dose: 75 mcg Montelukast Sodium (Singulair -) 10 mg PO [facility] Last Admin: 10/12/16 21:32 Dose: 10 mg Novolog U-100 Insulin - Patient Own Med 0 each SQ TIDAC [facility] Pantoprazole Sodium (Protonix -) 20 mg PO DAILY [facility] Last Admin: 10/13/16 08:59 Dose: 20 mg Prednisone (Deltasone -) 10 mg PO BID [facility] Last Admin: 10/13/16 08:59 Dose: 10 mg Ranolazine (Ranexa -) 500 mg PO BID [facility] Last Admin: 10/13/16 08:59 Dose: 500 mg - Objective Vital Signs: Vital Signs Temperature 98.1 F 10/13/16 07:56 Pulse Rate 90 10/13/16 07:56 Respiratory Rate 20 10/13/16 07:56 Blood Pressure 144/69 10/13/16 07:56 O2 Sat by Pulse Oximetry (%) 97 10/12/16 21:00 Constitutional: Yes: No Distress, Calm Neck: Yes: Supple Cardiovascular: Yes: Regular Rate and Rhythm Respiratory: Yes: Regular, Diminished Gastrointestinal: Yes: Normal Bowel Sounds, Soft, Abdomen, Obese Edema: No Labs: CBC, BMP 10/12/16 05:40 10/12/16 05:40 INR, PTT INR 0.96 (0.82-1.09) 10/11/16 02:10 - ....Imaging EKG: Report Reviewed (Tele: SR) Problem List - Problems (1) Chest pain Code(s): R07.9 - CHEST PAIN, UNSPECIFIED Qualifiers: Chest pain type: unspecified Qualified Code(s): R07.9 - Chest pain, unspecified (2) Diabetes mellitus Code(s): E11.9 - TYPE 2 DIABETES MELLITUS WITHOUT COMPLICATIONS Qualifiers: Diabetes mellitus type: type 2 (3) HTN (hypertension) Code(s): I10 - ESSENTIAL (PRIMARY) HYPERTENSION Qualifiers: Hypertension type: essential hypertension Qualified Code(s): I10 - Essential (primary) hypertension (4) Hypothyroid Code(s): E03.9 - HYPOTHYROIDISM, UNSPECIFIED Qualifiers: Hypothyroidism type: unspecified Qualified Code(s): E03.9 - Hypothyroidism, unspecified (5) Chronic systolic (congestive) heart failure Code(s): I50.22 - CHRONIC SYSTOLIC (CONGESTIVE) HEART FAILURE (6) Acute bronchitis Code(s): J20.9 - ACUTE BRONCHITIS, UNSPECIFIED Qualifiers: Bronchitis organism: unspecified organism Qualified Code(s): J20.9 - Acute bronchitis, unspecified Assessment/Plan 10/11/3016 Echo: Nl LV size with severely decreased LV fxn, unable to assess valve pathology 1. Atypical post-tussive chest pain syndrome with acute bronchitis 2. Non-ischemic cardiomyopathy with chronic class I-II NYHA classification LV failure s/p ICD, compensated 3. HTN 4. DM 5. Hypercholesterolemia 6. Hypothyroidism PLAN: 1. Continue Coreg 25 bid 2. Continue Entresto 24/26 bid with uptitration as tolerated 3. Continue Lasix 40 qd and Inspra 25 qd 4. Continue Lipitor 10 qhs 5. D/c Ranexa 500 bid 6. Continue ASA 81 qd 7. Recommend d/c Indocin, presentation inconsistent with pericarditis, analgesia as needed 8. Complete abx course, BD, O2 as needed, continue to ambulate, f/u with Dr. Sims at [facility] upon d/c
--- NOTE | 2016-10-13 15:33 | PN ---
Progress Note, Physician History of Present Illness: patient doing well no new issues cough much better voice much better - Current Medication List Current Medications: Active Medications Albuterol/Ipratropium (Duoneb -) 1 amp NEB QIDR [facility] Stop: 10/19/16 00:00 Last Admin: 10/13/16 11:30 Dose: 1 amp Aspirin (Ecotrin -) 81 mg PO DAILY [facility] Last Admin: 10/13/16 08:59 Dose: 81 mg Atorvastatin Calcium (Lipitor -) 10 mg PO [facility] Last Admin: 10/12/16 21:32 Dose: Not Given Carvedilol (Coreg -) 25 mg PO BID [facility] Last Admin: 10/13/16 08:59 Dose: 25 mg Eplerenone (Eplerenone) 25 mg PO DAILY [facility] Last Admin: 10/13/16 08:59 Dose: 25 mg Furosemide (Lasix -) 40 mg PO DAILY [facility] Last Admin: 10/13/16 08:59 Dose: 40 mg Ampicillin Sodium/Sulbactam (Sodium 3 gm/ Sodium Chloride) 100 mls @ 200 mls/ hr IVPB Q8H-IV [facility] Last Admin: 10/13/16 08:59 Dose: 200 mls/hr Levothyroxine Sodium (Synthroid -) 75 mcg PO DAILY@0700 [facility] Last Admin: 10/13/16 06:24 Dose: 75 mcg Montelukast Sodium (Singulair -) 10 mg PO [facility] Last Admin: 10/12/16 21:32 Dose: 10 mg Novolog U-100 Insulin - Patient Own Med 0 each SQ TIDAC [facility] Pantoprazole Sodium (Protonix -) 20 mg PO DAILY [facility] Last Admin: 10/13/16 08:59 Dose: 20 mg Prednisone (Deltasone -) 10 mg PO BID [facility] Last Admin: 10/13/16 08:59 Dose: 10 mg - Objective Vital Signs: Vital Signs Temperature 98.9 F 10/13/16 14:53 Pulse Rate 95 H 10/13/16 14:53 Respiratory Rate 20 10/13/16 14:53 Blood Pressure 143/81 10/13/16 14:53 O2 Sat by Pulse Oximetry (%) 95 10/13/16 11:25 Constitutional: Yes: No Distress, Calm HENT: Yes: Atraumatic Neck: Yes: Supple, Trachea Midline Respiratory: Yes: Regular, Rhonchi Gastrointestinal: Yes: Normal Bowel Sounds, Soft Musculoskeletal: Yes: WNL Extremities: Yes: WNL Neurological: Yes: Alert, Oriented Psychiatric: Yes: Alert, Oriented Labs: CBC, BMP 10/12/16 05:40 10/12/16 05:40 INR, PTT INR 0.96 (0.82-1.09) 10/11/16 02:10 Assessment/Plan chest pain r/o pneumonia cough this could be lingering pneumonia or patient is having bronchitits maxim will stop iv abx will change to oral abx
[2016-10-13] MEDS: AMOX TR/POT CLAV 875MG/125MG TABLETS (FP) PO SCH (16:42)
--- NOTE | 2016-10-13 17:42 | PN ---
Progress Note, Physician Chief Complaint: Chest pain/Fever 10 days/ Dilated cardiomyopathy/Asthma excerbation/ Decompensated CHF History of Present Illness: 56 year old female had travelled to [place] and had fever of 101 for 10 days, Pt was Rx there with Zithromax and Pt managed to come back but was having severe cough/ Bronchitis with Productuve yellow sputum with c/o shortness of breath and chest pain that is worse in the last 2 days. reports chest pain " heaviness, my heart is hurting" . Pt is still having chest pain/ Retrosternal hevy ness 11/26. Pain is more on coughing patient with history of CHF, hypothyroidism, pacemaker, hypercholesteremia, IDDM , S/P Hystrectomy, Colostomy/ closure, Obesity,S/P Cath at [facility]. Pt is relatively better Pt is having difficult IV access - Current Medication List Current Medications: Active Medications Albuterol/Ipratropium (Duoneb -) 1 amp NEB QIDR [facility] Stop: 10/19/16 00:00 Last Admin: 10/13/16 17:00 Dose: 1 amp Amoxicillin/Clavulanate Potassium (Augmentin - 875mg Tablet) 1 tab PO BID@0800, 1730 [facility] Last Admin: 10/13/16 16:42 Dose: 1 tab Aspirin (Ecotrin -) 81 mg PO DAILY [facility] Last Admin: 10/13/16 08:59 Dose: 81 mg Atorvastatin Calcium (Lipitor -) 10 mg PO HS [facility] Last Admin: 10/12/16 21:32 Dose: Not Given Carvedilol (Coreg -) 25 mg PO BID [facility] Last Admin: 10/13/16 08:59 Dose: 25 mg Eplerenone (Eplerenone) 25 mg PO DAILY [facility] Last Admin: 10/13/16 08:59 Dose: 25 mg Furosemide (Lasix -) 40 mg PO DAILY [facility] Last Admin: 10/13/16 08:59 Dose: 40 mg Levothyroxine Sodium (Synthroid -) 75 mcg PO DAILY@0700 [facility] Last Admin: 10/13/16 06:24 Dose: 75 mcg Montelukast Sodium (Singulair -) 10 mg PO HS [facility] Last Admin: 10/12/16 21:32 Dose: 10 mg Novolog U-100 Insulin - Patient Own Med 0 each SQ TIDAC [facility] Pantoprazole Sodium (Protonix -) 20 mg PO DAILY [facility] Last Admin: 10/13/16 08:59 Dose: 20 mg Prednisone (Deltasone -) 10 mg PO BID [facility] Last Admin: 10/13/16 08:59 Dose: 10 mg - Objective Vital Signs: Vital Signs Temperature 98.9 F 10/13/16 14:53 Pulse Rate 95 H 10/13/16 14:53 Respiratory Rate 20 10/13/16 14:53 Blood Pressure 143/81 10/13/16 14:53 O2 Sat by Pulse Oximetry (%) 95 10/13/16 11:25 Constitutional: Yes: No Distress Eyes: Yes: Conjunctiva Clear, EOM Intact HENT: Yes: Atraumatic, Normocephalic Neck: Yes: Supple, Trachea Midline Cardiovascular: Yes: Regular Rate and Rhythm, S1, S2 Respiratory: Yes: Regular, CTA Bilaterally Gastrointestinal: Yes: Normal Bowel Sounds, Soft Edema: No Neurological: Yes: Alert, Oriented, Cran Nerves II-XII Intact Labs: CBC, BMP 10/12/16 05:40 10/12/16 05:40 INR, PTT INR 0.96 (0.82-1.09) 10/11/16 02:10 Problem List - Problems (1) Chest pain Code(s): R07.9 - CHEST PAIN, UNSPECIFIED Qualifiers: Chest pain type: unspecified Qualified Code(s): R07.9 - Chest pain, unspecified (2) Chronic systolic (congestive) heart failure Code(s): I50.22 - CHRONIC SYSTOLIC (CONGESTIVE) HEART FAILURE (3) Cardiomyopathy Code(s): I42.9 - CARDIOMYOPATHY, UNSPECIFIED (4) Acute bronchitis Code(s): J20.9 - ACUTE BRONCHITIS, UNSPECIFIED Qualifiers: Bronchitis organism: unspecified organism Qualified Code(s): J20.9 - Acute bronchitis, unspecified (5) Asthma exacerbation Code(s): J45.901 - UNSPECIFIED ASTHMA WITH (ACUTE) EXACERBATION (6) Diabetes mellitus, insulin dependent (IDDM), uncontrolled Code(s): E10.65 - TYPE 1 DIABETES MELLITUS WITH HYPERGLYCEMIA (7) Hypothyroid Code(s): E03.9 - HYPOTHYROIDISM, UNSPECIFIED Qualifiers: Hypothyroidism type: unspecified Qualified Code(s): E03.9 - Hypothyroidism, unspecified (8) Obesity Code(s): E66.9 - OBESITY, UNSPECIFIED (9) Pneumonia Code(s): J18.9 - PNEUMONIA, UNSPECIFIED ORGANISM Assessment/Plan (1) Chest painR/O ACS/PE/Teitz syndrome: CT Angio Negative Code(s): R07.9 - CHEST PAIN, UNSPECIFIED Qualifiers: Chest pain type: unspecified Qualified Code(s): R07.9 - Chest pain, unspecified (2) Chronic systolic (congestive) heart failure Code(s): I50.22 - CHRONIC SYSTOLIC (CONGESTIVE) HEART FAILURE (3) Cardiomyopathy/ S/P Cath Code(s): I42.9 - CARDIOMYOPATHY, UNSPECIFIED (4) Acute bronchitis: ID consult Pt is patially Rx at [place] still has residual severe cough and productive Yellow sputum On Unasyn Now Code(s): J20.9 - ACUTE BRONCHITIS, UNSPECIFIED (5) Asthma exacerbation: Secondary to Pneumonia partially Rx at [place] Visit Recently Code(s): J45.901 - UNSPECIFIED ASTHMA WITH (ACUTE) EXACERBATION (6) Diabetes mellitus, insulin dependent (IDDM), uncontrolled Code(s): E10.65 - TYPE 1 DIABETES MELLITUS WITH HYPERGLYCEMIA (7) Hypothyroid Code(s): E03.9 - HYPOTHYROIDISM, UNSPECIFIED Qualifiers: Hypothyroidism type: unspecified Qualified Code(s): E03.9 - Hypothyroidism, unspecified (8) Obesity Code(s): E66.9 - OBESITY, UNSPECIFIED (9) Pneumonia Code(s): J18.9 - PNEUMONIA, UNSPECIFIED ORGANISM spoke with ID today as Pt is not having proper IV acess Pt will be on Augmentin PO
[2016-10-13] MEDS: ATORVASTATIN CA 10 MG TABLET (FP) PO SCH ×2 (21:44→21:49)
[2016-10-13] MEDS: INSULIN SLIDING SCALE (NOVOLOG) 1 VIAL SQ SCH (22:19)
[2016-10-13] MEDS: MONTELUKAST NA 10 MG TABLET PO SCH (22:41)
[2016-10-14] MEDS: LEVOTHYROXINE NA 75 MCG TABLET (FP) PO SCH (06:09)
[2016-10-14] MEDS: INSULIN SLIDING SCALE (NOVOLOG) 1 VIAL SQ SCH ×2 (06:25→11:48)
[2016-10-14] MEDS: ALBUTEROL SO4 2.5/IPRATROPIUM 0.5 INH SOL 3 ML VIAL.NEB. NEB SCH ×4 (07:17→23:30)
[2016-10-14] MEDS: AMOX TR/POT CLAV 875MG/125MG TABLETS (FP) PO SCH ×2 (10:05→19:01)
[2016-10-14] MEDS: CARVEDILOL 25 MG TABLET (FP) PO SCH ×2 (10:05→22:44)
[2016-10-14] MEDS: FUROSEMIDE 40 MG TABLET (FP) PO SCH (10:06)
[2016-10-14] MEDS: predniSONE 10 MG TABLET (UD) PO SCH ×2 (10:06→22:44)
[2016-10-14] MEDS: ASPIRIN COATED 81 MG TABLET.EC PO SCH (10:07)
[2016-10-14] MEDS: PANTOPRAZOLE 20 MG TABLET (FP) PO SCH (10:08)
[2016-10-14] MEDS: EPLERENONE 25 MG TABLET PO SCH (10:08)
[2016-10-14] MEDS: SACUBITRIL/VALSARTAN 24 MG-26 MG TABLET PO SCH ×2 (10:08→22:44)
--- NOTE | 2016-10-14 14:14 | PN ---
Progress Note, Physician History of Present Illness: doing well no new issues continues to have cough but improving still with sputum - Current Medication List Current Medications: Active Medications Albuterol/Ipratropium (Duoneb -) 1 amp NEB QIDR [facility] Stop: 10/19/16 00:00 Last Admin: 10/14/16 11:14 Dose: 1 amp Amoxicillin/Clavulanate Potassium (Augmentin - 875mg Tablet) 1 tab PO BID@0800, 1730 [facility] Last Admin: 10/14/16 10:05 Dose: 1 tab Aspirin (Ecotrin -) 81 mg PO DAILY [facility] Last Admin: 10/14/16 10:07 Dose: 81 mg Atorvastatin Calcium (Lipitor -) 10 mg PO [facility] Last Admin: 10/13/16 21:49 Dose: Not Given Carvedilol (Coreg -) 25 mg PO BID [facility] Last Admin: 10/14/16 10:05 Dose: 25 mg Eplerenone (Eplerenone) 25 mg PO DAILY [facility] Last Admin: 10/14/16 10:08 Dose: 25 mg Furosemide (Lasix -) 40 mg PO DAILY [facility] Last Admin: 10/14/16 10:06 Dose: 40 mg Insulin Aspart (Novolog Vial Sliding Scale -) 1 vial SQ TIDAC [facility] PRN Reason: Protocol Last Admin: 10/14/16 11:48 Dose: Not Given Levothyroxine Sodium (Synthroid -) 75 mcg PO DAILY@0700 [facility] Last Admin: 10/14/16 06:09 Dose: 75 mcg Montelukast Sodium (Singulair -) 10 mg PO [facility] Last Admin: 10/13/16 22:41 Dose: 10 mg Pantoprazole Sodium (Protonix -) 20 mg PO DAILY [facility] Last Admin: 10/14/16 10:08 Dose: 20 mg Prednisone (Deltasone -) 10 mg PO BID [facility] Last Admin: 10/14/16 10:06 Dose: 10 mg - Objective Vital Signs: Vital Signs Temperature 97.8 F 10/14/16 14:05 Pulse Rate 96 H 10/14/16 14:05 Respiratory Rate 20 10/14/16 14:05 Blood Pressure 127/71 10/14/16 14:05 O2 Sat by Pulse Oximetry (%) 100 10/14/16 11:13 Constitutional: Yes: Calm, Mild Distress, Obese Cardiovascular: Yes: Regular Rate and Rhythm Respiratory: Yes: Regular, CTA Bilaterally Gastrointestinal: Yes: Normal Bowel Sounds, Soft Musculoskeletal: Yes: WNL Extremities: Yes: WNL Neurological: Yes: Alert, Oriented Psychiatric: Yes: Alert, Oriented Labs: CBC, BMP 10/12/16 05:40 10/12/16 05:40 INR, PTT INR 0.96 (0.82-1.09) 10/11/16 02:10 Assessment/Plan Problem List - Problems (1) Chest pain Code(s): R07.9 - CHEST PAIN, UNSPECIFIED Qualifiers: Chest pain type: unspecified Qualified Code(s): R07.9 - Chest pain, unspecified (2) Chronic systolic (congestive) heart failure Code(s): I50.22 - CHRONIC SYSTOLIC (CONGESTIVE) HEART FAILURE (3) Cardiomyopathy Code(s): I42.9 - CARDIOMYOPATHY, UNSPECIFIED (4) Acute bronchitis Code(s): J20.9 - ACUTE BRONCHITIS, UNSPECIFIED Qualifiers: Bronchitis organism: unspecified organism Qualified Code(s): J20.9 - Acute bronchitis, unspecified (5) Asthma exacerbation Code(s): J45.901 - UNSPECIFIED ASTHMA WITH (ACUTE) EXACERBATION (6) Diabetes mellitus, insulin dependent (IDDM), uncontrolled Code(s): E10.65 - TYPE 1 DIABETES MELLITUS WITH HYPERGLYCEMIA (7) Hypothyroid Code(s): E03.9 - HYPOTHYROIDISM, UNSPECIFIED Qualifiers: Hypothyroidism type: unspecified Qualified Code(s): E03.9 - Hypothyroidism, unspecified (8) Obesity Code(s): E66.9 - OBESITY, UNSPECIFIED (9) Pneumonia Code(s): J18.9 - PNEUMONIA, UNSPECIFIED ORGANISM plan continue oral abx incentive susi cario on case
--- NOTE | 2016-10-14 15:18 | PN ---
Progress Note, Physician History of Present Illness: Cough with post-tussive chest pain improving, denies dyspnea. - Current Medication List Current Medications: Active Medications Albuterol/Ipratropium (Duoneb -) 1 amp NEB QIDR [facility] Stop: 10/19/16 00:00 Last Admin: 10/14/16 11:14 Dose: 1 amp Amoxicillin/Clavulanate Potassium (Augmentin - 875mg Tablet) 1 tab PO BID@0800, 1730 [facility] Last Admin: 10/14/16 10:05 Dose: 1 tab Aspirin (Ecotrin -) 81 mg PO DAILY [facility] Last Admin: 10/14/16 10:07 Dose: 81 mg Atorvastatin Calcium (Lipitor -) 10 mg PO [facility] Last Admin: 10/13/16 21:49 Dose: Not Given Carvedilol (Coreg -) 25 mg PO BID [facility] Last Admin: 10/14/16 10:05 Dose: 25 mg Eplerenone (Eplerenone) 25 mg PO DAILY [facility] Last Admin: 10/14/16 10:08 Dose: 25 mg Furosemide (Lasix -) 40 mg PO DAILY [facility] Last Admin: 10/14/16 10:06 Dose: 40 mg Insulin Aspart (Novolog Vial Sliding Scale -) 1 vial SQ TIDAC [facility] PRN Reason: Protocol Last Admin: 10/14/16 11:48 Dose: Not Given Levothyroxine Sodium (Synthroid -) 75 mcg PO DAILY@0700 [facility] Last Admin: 10/14/16 06:09 Dose: 75 mcg Montelukast Sodium (Singulair -) 10 mg PO [facility] Last Admin: 10/13/16 22:41 Dose: 10 mg Pantoprazole Sodium (Protonix -) 20 mg PO DAILY [facility] Last Admin: 10/14/16 10:08 Dose: 20 mg Prednisone (Deltasone -) 10 mg PO BID [facility] Last Admin: 10/14/16 10:06 Dose: 10 mg - Objective Vital Signs: Vital Signs Temperature 97.8 F 10/14/16 14:05 Pulse Rate 96 H 10/14/16 14:05 Respiratory Rate 20 10/14/16 14:05 Blood Pressure 127/71 10/14/16 14:05 O2 Sat by Pulse Oximetry (%) 100 10/14/16 11:13 Constitutional: Yes: No Distress, Calm Neck: Yes: Supple Cardiovascular: Yes: Regular Rate and Rhythm Respiratory: Yes: Regular, Diminished, On Nasal O2 Gastrointestinal: Yes: Normal Bowel Sounds, Soft Edema: No Labs: CBC, BMP 10/12/16 05:40 10/12/16 05:40 INR, PTT INR 0.96 (0.82-1.09) 10/11/16 02:10 Problem List - Problems (1) Chest pain Code(s): R07.9 - CHEST PAIN, UNSPECIFIED Qualifiers: Chest pain type: unspecified Qualified Code(s): R07.9 - Chest pain, unspecified (2) Diabetes mellitus Code(s): E11.9 - TYPE 2 DIABETES MELLITUS WITHOUT COMPLICATIONS Qualifiers: Diabetes mellitus type: type 2 (3) HTN (hypertension) Code(s): I10 - ESSENTIAL (PRIMARY) HYPERTENSION Qualifiers: Hypertension type: essential hypertension Qualified Code(s): I10 - Essential (primary) hypertension (4) Hypothyroid Code(s): E03.9 - HYPOTHYROIDISM, UNSPECIFIED Qualifiers: Hypothyroidism type: unspecified Qualified Code(s): E03.9 - Hypothyroidism, unspecified (5) Chronic systolic (congestive) heart failure Code(s): I50.22 - CHRONIC SYSTOLIC (CONGESTIVE) HEART FAILURE (6) Acute bronchitis Code(s): J20.9 - ACUTE BRONCHITIS, UNSPECIFIED Qualifiers: Bronchitis organism: unspecified organism Qualified Code(s): J20.9 - Acute bronchitis, unspecified Assessment/Plan 10/11/3016 Echo: Nl LV size with severely decreased LV fxn, unable to assess valve pathology 1. Atypical post-tussive chest pain syndrome with acute bronchitis 2. Non-ischemic cardiomyopathy with chronic class I-II NYHA classification LV failure s/p ICD, compensated 3. HTN 4. DM 5. Hypercholesterolemia 6. Hypothyroidism PLAN: 1. Continue Coreg 25 bid 2. Continue Entresto 24/26 bid with uptitration as tolerated 3. Continue Lasix 40 qd and Inspra 25 qd 4. Continue Lipitor 10 qhs 6. Continue ASA 81 qd 7. Complete abx course, BD, O2 as needed, Singulair, prednisone taper with GI protection, encourage ambulation, f/u with Dr. Sims at [facility] d/c
--- NOTE | 2016-10-14 15:40 | PN ---
Progress Note, Physician Chief Complaint: Chest pain/Fever 10 days/ Dilated cardiomyopathy/Asthma excerbation/ Decompensated CHF History of Present Illness: 56 year old female had travelled to [place] and had fever of 101 for 10 days, Pt was Rx there with Zithromax and Pt managed to come back but was having severe cough/ Bronchitis with Productuve yellow sputum with c/o shortness of breath and chest pain that is worse in the last 2 days. reports chest pain " heaviness, my heart is hurting" . Pt is still having chest pain/ Retrosternal hevy ness 11/26. Pain is more on coughing patient with history of CHF, hypothyroidism, pacemaker, hypercholesteremia, IDDM , S/P Hystrectomy, Colostomy/ closure, Obesity,S/P Cath at [facility]. Pt is relatively better Pt is having difficult IV access - Current Medication List Current Medications: Active Medications Albuterol/Ipratropium (Duoneb -) 1 amp NEB QIDR [facility] Stop: 10/19/16 00:00 Last Admin: 10/14/16 11:14 Dose: 1 amp Amoxicillin/Clavulanate Potassium (Augmentin - 875mg Tablet) 1 tab PO BID@0800, 1730 [facility] Last Admin: 10/14/16 10:05 Dose: 1 tab Aspirin (Ecotrin -) 81 mg PO DAILY [facility] Last Admin: 10/14/16 10:07 Dose: 81 mg Atorvastatin Calcium (Lipitor -) 10 mg PO [facility] Last Admin: 10/13/16 21:49 Dose: Not Given Carvedilol (Coreg -) 25 mg PO BID [facility] Last Admin: 10/14/16 10:05 Dose: 25 mg Eplerenone (Eplerenone) 25 mg PO DAILY [facility] Last Admin: 10/14/16 10:08 Dose: 25 mg Furosemide (Lasix -) 40 mg PO DAILY [facility] Last Admin: 10/14/16 10:06 Dose: 40 mg Insulin Aspart (Novolog Vial Sliding Scale -) 1 vial SQ TIDAC [facility] PRN Reason: Protocol Last Admin: 10/14/16 11:48 Dose: Not Given Levothyroxine Sodium (Synthroid -) 75 mcg PO DAILY@0700 [facility] Last Admin: 10/14/16 06:09 Dose: 75 mcg Montelukast Sodium (Singulair -) 10 mg PO [facility] Last Admin: 10/13/16 22:41 Dose: 10 mg Pantoprazole Sodium (Protonix -) 20 mg PO DAILY [facility] Last Admin: 10/14/16 10:08 Dose: 20 mg Prednisone (Deltasone -) 10 mg PO BID [facility] Last Admin: 10/14/16 10:06 Dose: 10 mg - Objective Vital Signs: Vital Signs Temperature 97.8 F 10/14/16 14:05 Pulse Rate 96 H 10/14/16 14:05 Respiratory Rate 20 10/14/16 14:05 Blood Pressure 127/71 10/14/16 14:05 O2 Sat by Pulse Oximetry (%) 100 10/14/16 11:13 Constitutional: Yes: Well Nourished, No Distress Eyes: Yes: Conjunctiva Clear, EOM Intact HENT: Yes: Atraumatic, Normocephalic Neck: Yes: Supple, Trachea Midline Cardiovascular: Yes: Regular Rate and Rhythm, S1, S2 Respiratory: Yes: Regular, CTA Bilaterally, Wheezes (Mild scatted wheezing) Gastrointestinal: Yes: Normal Bowel Sounds, Soft Edema: No Peripheral Pulses WNL: Yes Neurological: Yes: Alert, Oriented, Cran Nerves II-XII Intact Labs: CBC, BMP 10/12/16 05:40 10/12/16 05:40 INR, PTT INR 0.96 (0.82-1.09) 10/11/16 02:10 Problem List - Problems (1) Chest pain Code(s): R07.9 - CHEST PAIN, UNSPECIFIED Qualifiers: Chest pain type: unspecified Qualified Code(s): R07.9 - Chest pain, unspecified (2) Chronic systolic (congestive) heart failure Code(s): I50.22 - CHRONIC SYSTOLIC (CONGESTIVE) HEART FAILURE (3) Cardiomyopathy Code(s): I42.9 - CARDIOMYOPATHY, UNSPECIFIED (4) Acute bronchitis Code(s): J20.9 - ACUTE BRONCHITIS, UNSPECIFIED Qualifiers: Bronchitis organism: unspecified organism Qualified Code(s): J20.9 - Acute bronchitis, unspecified (5) Asthma exacerbation Code(s): J45.901 - UNSPECIFIED ASTHMA WITH (ACUTE) EXACERBATION (6) Diabetes mellitus, insulin dependent (IDDM), uncontrolled Code(s): E10.65 - TYPE 1 DIABETES MELLITUS WITH HYPERGLYCEMIA (7) Hypothyroid Code(s): E03.9 - HYPOTHYROIDISM, UNSPECIFIED Qualifiers: Hypothyroidism type: unspecified Qualified Code(s): E03.9 - Hypothyroidism, unspecified (8) Obesity Code(s): E66.9 - OBESITY, UNSPECIFIED (9) Pneumonia Code(s): J18.9 - PNEUMONIA, UNSPECIFIED ORGANISM Assessment/Plan (1) Chest painR/O ACS/PE/Teitz syndrome: CT Angio Negative Code(s): R07.9 - CHEST PAIN, UNSPECIFIED Qualifiers: Chest pain type: unspecified Qualified Code(s): R07.9 - Chest pain, unspecified (2) Chronic systolic (congestive) heart failure Code(s): I50.22 - CHRONIC SYSTOLIC (CONGESTIVE) HEART FAILURE (3) Cardiomyopathy/ S/P Cath Code(s): I42.9 - CARDIOMYOPATHY, UNSPECIFIED (4) Acute bronchitis: ID consult Pt is patially Rx at [place] still has residual severe cough and productive Yellow sputum On Unasyn Now Code(s): J20.9 - ACUTE BRONCHITIS, UNSPECIFIED (5) Asthma exacerbation: Secondary to Pneumonia partially Rx at [place] Visit Recently Code(s): J45.901 - UNSPECIFIED ASTHMA WITH (ACUTE) EXACERBATION (6) Diabetes mellitus, insulin dependent (IDDM), uncontrolled Code(s): E10.65 - TYPE 1 DIABETES MELLITUS WITH HYPERGLYCEMIA (7) Hypothyroid Code(s): E03.9 - HYPOTHYROIDISM, UNSPECIFIED Qualifiers: Hypothyroidism type: unspecified Qualified Code(s): E03.9 - Hypothyroidism, unspecified (8) Obesity Code(s): E66.9 - OBESITY, UNSPECIFIED (9) Pneumonia Code(s): J18.9 - PNEUMONIA, UNSPECIFIED ORGANISM spoke with ID today as Pt is not having proper IV acess Pt will be on Augmentin PO
--- NOTE | 2016-10-14 15:41 | DS ---
Physical Examination Vital Signs: Vital Signs Temperature 97.8 F 10/14/16 14:05 Pulse Rate 96 H 10/14/16 14:05 Respiratory Rate 20 10/14/16 14:05 Blood Pressure 127/71 10/14/16 14:05 O2 Sat by Pulse Oximetry (%) 100 10/14/16 11:13 Findings/Remarks: 56 year old female had travelled to [place] and had fever of 101 for 10 days, Pt was Rx there with Zithromax and Pt managed to come back but was having severe cough/ Bronchitis with Productuve yellow sputum with c/o shortness of breath and chest pain that is worse in the last 2 days. reports chest pain " heaviness, my heart is hurting" . Pt is still having chest pain/ Retrosternal hevy ness 11/26. Pain is more on coughing patient with history of CHF, hypothyroidism, pacemaker, hypercholesteremia, IDDM , S/P Hystrectomy, Colostomy/ closure, Obesity,S/P Cath at [facility]. Pt had CT angio negative for PE Pt seen by ID Started on Unasyn later for difficult IV access changed to Po [place] as per ID Pt had decompensated CHF on lasix Pt will be Dced home with Advise to follow up in Office next week Constitutional: Yes: No Distress Eyes: Yes: Conjunctiva Clear, EOM Intact HENT: Yes: Atraumatic, Normocephalic Neck: Yes: Supple, Trachea Midline Cardiovascular: Yes: Regular Rate and Rhythm, S1, S2 Respiratory: Yes: Regular, CTA Bilaterally, Other (wheezing had improved) Gastrointestinal: Yes: Normal Bowel Sounds, Soft Edema: No Peripheral Pulses WNL: Yes Labs: CBC, BMP 10/12/16 05:40 10/12/16 05:40 Discharge Summary Reason For Visit: CHEST PAIN ACS Current Active Problems Acute bronchitis (Acute) / Pneumoonia Asthma exacerbation (Acute) Cardiomyopathy (Acute) Chest pain (Acute) Chronic systolic (congestive) heart failure (Acute) Diabetes mellitus, insulin dependent (IDDM), uncontrolled (Acute) Condition: Fair - Instructions Diet, Activity, Other Instructions: Pt to Follow in My office October 20 Afternoon 3 PM Pt prescriptions sent to pharmacy [facility] Referrals: STAFF,NOT ON [Non Staff, Medical] - (To Follow with Dr Brittney Sevilla/ Dr Betancur office PMD Next week) Castillo Lugo MD [Staff Physician] - Disposition: HOME - Home Medications Comprehensive Discharge Medication List: Ambulatory Orders Aspirin [Eben Chewable] 81 mg PO DAILY 08/12/15 Carvedilol [Coreg -] 25 mg PO BID 08/12/15 Cholecalciferol (Vitamin D3) [Vitamin D3] 5,000 unit PO DAILY 08/12/15 Eplerenone [Inspra] 25 mg PO DAILY 08/12/15 Exenatide Microspheres [Bydureon Pen] 2 mg SQ WEEKLY 08/12/15 Furosemide [Lasix -] 40 mg PO DAILY 08/12/15 Insulin (LOG) Aspart [NovoLOG -] 0 unit SQ DAILY 08/12/15 Levothyroxine [Synthroid -] 75 mcg PO DAILY 08/12/15 Lisinopril 10 mg PO DAILY 08/12/15 Montelukast Na [Singulair -] 10 mg PO HS 08/12/15 Simvastatin 20 mg PO HS 10/11/16 Augmentin 850 Po BID for 7 days Robitossin sugar free 15ml PO TID Prednisone 10 mg PO BID 7days Duoneb Q 8h hours Pt was given a Preescription for nebulizer also
[2016-10-14] MEDS ORDERED: INSULIN (NOVOLOG) ASPART 100 UNITS/ML 10ML VIAL SQ ONE (19:45)
[2016-10-14] MEDS ORDERED: PT OWN MED DRAWER 7, Y5N ONE ×2 (20:18→22:13)
[2016-10-14] MEDS ORDERED: INSULIN (NOVOLOG) ASPART 100 UNITS/ML 10ML VIAL ONE (20:19)
[2016-10-14] MEDS: ATORVASTATIN CA 10 MG TABLET (FP) PO SCH (22:44)
[2016-10-14] MEDS: MONTELUKAST NA 10 MG TABLET PO SCH (22:44)
[2016-10-15] MEDS ORDERED: PT OWN MED DRAWER 7, Y5N ONE ×3 (00:57→09:33)
[2016-10-15] MEDS ORDERED: INSULIN (NOVOLOG) ASPART 100 UNITS/ML 10ML VIAL ONE ×2 (05:50→11:50)
[2016-10-15] MEDS: ALBUTEROL SO4 2.5/IPRATROPIUM 0.5 INH SOL 3 ML VIAL.NEB. NEB SCH ×3 (06:15→17:13)
[2016-10-15] MEDS: INSULIN SLIDING SCALE (NOVOLOG) 1 VIAL SQ SCH ×3 (06:28→17:26)
[2016-10-15] MEDS: guaiFENesin/D-M SUGAR-FREE/ACLHOL-FREE 118 ML BOTTLE PO SCH ×4 (06:30→17:27)
[2016-10-15] MEDS: LEVOTHYROXINE NA 75 MCG TABLET (FP) PO SCH (06:31)
[2016-10-15] MEDS: CARVEDILOL 25 MG TABLET (FP) PO SCH ×2 (09:44→21:49)
[2016-10-15] MEDS: predniSONE 10 MG TABLET (UD) PO SCH ×2 (09:44→21:49)
[2016-10-15] MEDS: PANTOPRAZOLE 20 MG TABLET (FP) PO SCH (09:44)
[2016-10-15] MEDS: ASPIRIN COATED 81 MG TABLET.EC PO SCH (09:44)
[2016-10-15] MEDS: EPLERENONE 25 MG TABLET PO SCH (09:44)
[2016-10-15] MEDS: FUROSEMIDE 40 MG TABLET (FP) PO SCH (09:44)
[2016-10-15] MEDS: AMOX TR/POT CLAV 875MG/125MG TABLETS (FP) PO SCH ×2 (09:44→17:29)
[2016-10-15] MEDS: SACUBITRIL/VALSARTAN 24 MG-26 MG TABLET PO SCH ×2 (09:45→23:12)
--- NOTE | 2016-10-15 10:50 | PN ---
Progress Note, Physician Chief Complaint: Events noted Feels better History of Present Illness: Patient was seen and examined. Awake and alert. Chart was reviewed Denies chest pain or palpitations. Less SOB - Current Medication List Current Medications: Active Medications Albuterol/Ipratropium (Duoneb -) 1 amp NEB QIDR [facility] Stop: 10/19/16 00:00 Last Admin: 10/15/16 06:15 Dose: 1 amp Amoxicillin/Clavulanate Potassium (Augmentin - 875mg Tablet) 1 tab PO BID@0800, 1730 [facility] Last Admin: 10/15/16 09:44 Dose: 1 tab Aspirin (Ecotrin -) 81 mg PO DAILY [facility] Last Admin: 10/15/16 09:44 Dose: 81 mg Atorvastatin Calcium (Lipitor -) 10 mg PO [facility] Last Admin: 10/14/16 22:44 Dose: 10 mg Carvedilol (Coreg -) 25 mg PO BID [facility] Last Admin: 10/15/16 09:44 Dose: 25 mg Eplerenone (Eplerenone) 25 mg PO DAILY [facility] Last Admin: 10/15/16 09:44 Dose: 25 mg Furosemide (Lasix -) 40 mg PO DAILY [facility] Last Admin: 10/15/16 09:44 Dose: 40 mg Guaifenesin (Diabetic Tussin Dm -) 10 ml PO Q6HPO [facility] Last Admin: 10/15/16 06:30 Dose: 10 ml Insulin Aspart (Novolog Vial Sliding Scale -) 1 vial SQ TIDAC [facility] PRN Reason: Protocol Last Admin: 10/15/16 06:28 Dose: 4 units Levothyroxine Sodium (Synthroid -) 75 mcg PO DAILY@0700 [facility] Last Admin: 10/15/16 06:31 Dose: 75 mcg Montelukast Sodium (Singulair -) 10 mg PO [facility] Last Admin: 10/14/16 22:44 Dose: 10 mg Pantoprazole Sodium (Protonix -) 20 mg PO DAILY [facility] Last Admin: 10/15/16 09:44 Dose: 20 mg Prednisone (Deltasone -) 10 mg PO BID [facility] Last Admin: 10/15/16 09:44 Dose: 10 mg - Objective Vital Signs: Vital Signs Temperature 98.3 F 10/15/16 09:00 Pulse Rate 77 10/15/16 09:00 Respiratory Rate 18 10/15/16 09:00 Blood Pressure 141/90 10/15/16 09:00 O2 Sat by Pulse Oximetry (%) 100 10/14/16 21:00 Neck: Yes: Supple Cardiovascular: Yes: Regular Rate and Rhythm, S1, S2 Respiratory: Yes: Diminished Gastrointestinal: Yes: Normal Bowel Sounds, Soft. No: Tenderness Edema: No Problem List - Problems (1) Acute bronchitis Code(s): J20.9 - ACUTE BRONCHITIS, UNSPECIFIED Qualifiers: Bronchitis organism: unspecified organism Qualified Code(s): J20.9 - Acute bronchitis, unspecified (2) Chronic systolic (congestive) heart failure Code(s): I50.22 - CHRONIC SYSTOLIC (CONGESTIVE) HEART FAILURE (3) Diabetes mellitus, insulin dependent (IDDM), uncontrolled Code(s): E10.65 - TYPE 1 DIABETES MELLITUS WITH HYPERGLYCEMIA (4) Acute on chronic clinical systolic heart failure Code(s): I50.23 - ACUTE ON CHRONIC SYSTOLIC (CONGESTIVE) HEART FAILURE (5) Diabetes mellitus Code(s): E11.9 - TYPE 2 DIABETES MELLITUS WITHOUT COMPLICATIONS Qualifiers: Diabetes mellitus type: type 2 (6) Dilated cardiomyopathy Code(s): I42.0 - DILATED CARDIOMYOPATHY (7) HTN (hypertension) Code(s): I10 - ESSENTIAL (PRIMARY) HYPERTENSION Qualifiers: Hypertension type: essential hypertension Qualified Code(s): I10 - Essential (primary) hypertension (8) Hypothyroid Code(s): E03.9 - HYPOTHYROIDISM, UNSPECIFIED Qualifiers: Hypothyroidism type: unspecified Qualified Code(s): E03.9 - Hypothyroidism, unspecified Assessment/Plan 1. Atypical post-tussive chest pain syndrome with acute bronchitis 2. Non-ischemic dilated cardiomyopathy with chronic class I-II NYHA classification LV failure s/p ICD, compensated 3. HTN 4. DM 5. Hypercholesterolemia 6. Hypothyroidism PLAN: 1. Continue Coreg 25 mg bid 2. Continue Entresto 24/26 mg bid with uptitration as tolerated 3. Continue Lasix 40 mg qd and Inspra 25 mg qd 4. Continue Lipitor 10 mg qhs 6. Continue ASA 81 mg qd 7. Complete antibiotic course, bronchodilator, O2 as needed, Singulair, prednisone taper with GI protection, encourage ambulation 8. Follow up with Dr. Sims at [facility] upon discharge Further plans are to follow Wild Law MD
--- NOTE | 2016-10-15 14:14 | PN ---
Progress Note, Physician History of Present Illness: doing well still with cough minimal sputum production - Current Medication List Current Medications: Active Medications Albuterol/Ipratropium (Duoneb -) 1 amp NEB QIDR [facility] Stop: 10/19/16 00:00 Last Admin: 10/15/16 11:24 Dose: 1 amp Amoxicillin/Clavulanate Potassium (Augmentin - 875mg Tablet) 1 tab PO BID@0800, 1730 [facility] Last Admin: 10/15/16 09:44 Dose: 1 tab Aspirin (Ecotrin -) 81 mg PO DAILY [facility] Last Admin: 10/15/16 09:44 Dose: 81 mg Atorvastatin Calcium (Lipitor -) 10 mg PO [facility] Last Admin: 10/14/16 22:44 Dose: 10 mg Carvedilol (Coreg -) 25 mg PO BID [facility] Last Admin: 10/15/16 09:44 Dose: 25 mg Eplerenone (Eplerenone) 25 mg PO DAILY [facility] Last Admin: 10/15/16 09:44 Dose: 25 mg Furosemide (Lasix -) 40 mg PO DAILY [facility] Last Admin: 10/15/16 09:44 Dose: 40 mg Guaifenesin (Diabetic Tussin Dm -) 10 ml PO Q6HPO [facility] Last Admin: 10/15/16 11:56 Dose: 10 ml Insulin Aspart (Novolog Vial Sliding Scale -) 1 vial SQ TIDAC [facility] PRN Reason: Protocol Last Admin: 10/15/16 11:54 Dose: 6 units Levothyroxine Sodium (Synthroid -) 75 mcg PO DAILY@0700 [facility] Last Admin: 10/15/16 06:31 Dose: 75 mcg Montelukast Sodium (Singulair -) 10 mg PO [facility] Last Admin: 10/14/16 22:44 Dose: 10 mg Pantoprazole Sodium (Protonix -) 20 mg PO DAILY [facility] Last Admin: 10/15/16 09:44 Dose: 20 mg Prednisone (Deltasone -) 10 mg PO BID [facility] Last Admin: 10/15/16 09:44 Dose: 10 mg - Objective Vital Signs: Vital Signs Temperature 98.8 F 10/15/16 13:54 Pulse Rate 69 10/15/16 13:54 Respiratory Rate 18 10/15/16 13:54 Blood Pressure 126/57 10/15/16 13:54 O2 Sat by Pulse Oximetry (%) 98 10/15/16 11:24 Constitutional: Yes: Calm, Mild Distress Cardiovascular: Yes: Regular Rate and Rhythm Respiratory: Yes: Regular, Rhonchi Gastrointestinal: Yes: Normal Bowel Sounds, Soft Musculoskeletal: Yes: WNL Extremities: Yes: WNL Neurological: Yes: Alert, Oriented Psychiatric: Yes: Alert, Oriented Labs: CBC, BMP 10/12/16 05:40 10/12/16 05:40 INR, PTT INR 0.96 (0.82-1.09) 10/11/16 02:10 Assessment/Plan Problem List - Problems (1) Chest pain Code(s): R07.9 - CHEST PAIN, UNSPECIFIED Qualifiers: Chest pain type: unspecified Qualified Code(s): R07.9 - Chest pain, unspecified (2) Chronic systolic (congestive) heart failure Code(s): I50.22 - CHRONIC SYSTOLIC (CONGESTIVE) HEART FAILURE (3) Cardiomyopathy Code(s): I42.9 - CARDIOMYOPATHY, UNSPECIFIED (4) Acute bronchitis Code(s): J20.9 - ACUTE BRONCHITIS, UNSPECIFIED Qualifiers: Bronchitis organism: unspecified organism Qualified Code(s): J20.9 - Acute bronchitis, unspecified (5) Asthma exacerbation Code(s): J45.901 - UNSPECIFIED ASTHMA WITH (ACUTE) EXACERBATION (6) Diabetes mellitus, insulin dependent (IDDM), uncontrolled Code(s): E10.65 - TYPE 1 DIABETES MELLITUS WITH HYPERGLYCEMIA (7) Hypothyroid Code(s): E03.9 - HYPOTHYROIDISM, UNSPECIFIED Qualifiers: Hypothyroidism type: unspecified Qualified Code(s): E03.9 - Hypothyroidism, unspecified (8) Obesity Code(s): E66.9 - OBESITY, UNSPECIFIED (9) Pneumonia Code(s): J18.9 - PNEUMONIA, UNSPECIFIED ORGANISM plan continue oral abx incentive susi cardio on case blood sugar control
[2016-10-15] MEDS ORDERED: INSULIN (NOVOLOG) ASPART 100 UNITS/ML 10ML VIAL SQ ONE (17:45)
--- NOTE | 2016-10-15 20:53 | PN ---
Progress Note, Physician Chief Complaint: Chest pain/Fever 10 days/ Dilated cardiomyopathy/Asthma excerbation/ Decompensated CHF History of Present Illness: 56 year old female had travelled to [place] and had fever of 101 for 10 days, Pt was Rx there with Zithromax and Pt managed to come back but was having severe cough/ Bronchitis with Productuve yellow sputum with c/o shortness of breath and chest pain that is worse in the last 2 days. reports chest pain " heaviness, my heart is hurting" . Pt is still having chest pain/ Retrosternal hevy ness 11/26. Pain is more on coughing patient with history of CHF, hypothyroidism, pacemaker, hypercholesteremia, IDDM , S/P Hystrectomy, Colostomy/ closure, Obesity,S/P Cath at [facility]. Pt is relatively better Pt is having difficult IV access - Current Medication List Current Medications: Active Medications Albuterol/Ipratropium (Duoneb -) 1 amp NEB QIDR [facility] Stop: 10/19/16 00:00 Last Admin: 10/15/16 17:13 Dose: 1 amp Amoxicillin/Clavulanate Potassium (Augmentin - 875mg Tablet) 1 tab PO BID@0800, 1730 [facility] Last Admin: 10/15/16 17:29 Dose: 1 tab Aspirin (Ecotrin -) 81 mg PO DAILY [facility] Last Admin: 10/15/16 09:44 Dose: 81 mg Atorvastatin Calcium (Lipitor -) 10 mg PO HS [facility] Last Admin: 10/14/16 22:44 Dose: 10 mg Carvedilol (Coreg -) 25 mg PO BID [facility] Last Admin: 10/15/16 09:44 Dose: 25 mg Eplerenone (Eplerenone) 25 mg PO DAILY [facility] Last Admin: 10/15/16 09:44 Dose: 25 mg Furosemide (Lasix -) 40 mg PO DAILY [facility] Last Admin: 10/15/16 09:44 Dose: 40 mg Guaifenesin (Diabetic Tussin Dm -) 10 ml PO Q6HPO [facility] Last Admin: 10/15/16 17:27 Dose: 10 ml Insulin Aspart (Novolog Vial Sliding Scale -) 1 vial SQ TIDAC [facility] PRN Reason: Protocol Last Admin: 10/15/16 17:26 Dose: 15 units Levothyroxine Sodium (Synthroid -) 75 mcg PO DAILY@0700 [facility] Last Admin: 10/15/16 06:31 Dose: 75 mcg Montelukast Sodium (Singulair -) 10 mg PO HS [facility] Last Admin: 10/14/16 22:44 Dose: 10 mg Pantoprazole Sodium (Protonix -) 20 mg PO DAILY [facility] Last Admin: 10/15/16 09:44 Dose: 20 mg Prednisone (Deltasone -) 10 mg PO BID [facility] Last Admin: 10/15/16 09:44 Dose: 10 mg - Objective Vital Signs: Vital Signs Temperature 98.3 F 10/15/16 18:00 Pulse Rate 75 10/15/16 18:00 Respiratory Rate 18 10/15/16 18:00 Blood Pressure 143/65 10/15/16 18:00 O2 Sat by Pulse Oximetry (%) 98 10/15/16 11:24 Constitutional: Yes: Well Nourished Eyes: Yes: Conjunctiva Clear, EOM Intact HENT: Yes: Atraumatic, Normocephalic Neck: Yes: Supple, Trachea Midline Cardiovascular: Yes: Regular Rate and Rhythm, S1, S2 Respiratory: Yes: Regular, CTA Bilaterally, Other (Pt is still having cough) Gastrointestinal: Yes: Normal Bowel Sounds, Soft Edema: No Peripheral Pulses WNL: Yes Neurological: Yes: Alert, Oriented, Cran Nerves II-XII Intact Labs: CBC, BMP 10/12/16 05:40 10/12/16 05:40 INR, PTT INR 0.96 (0.82-1.09) 10/11/16 02:10 Problem List - Problems (1) Chest pain Code(s): R07.9 - CHEST PAIN, UNSPECIFIED Qualifiers: Chest pain type: unspecified Qualified Code(s): R07.9 - Chest pain, unspecified (2) Chronic systolic (congestive) heart failure Code(s): I50.22 - CHRONIC SYSTOLIC (CONGESTIVE) HEART FAILURE (3) Cardiomyopathy Code(s): I42.9 - CARDIOMYOPATHY, UNSPECIFIED (4) Acute bronchitis Code(s): J20.9 - ACUTE BRONCHITIS, UNSPECIFIED Qualifiers: Bronchitis organism: unspecified organism Qualified Code(s): J20.9 - Acute bronchitis, unspecified (5) Asthma exacerbation Code(s): J45.901 - UNSPECIFIED ASTHMA WITH (ACUTE) EXACERBATION (6) Diabetes mellitus, insulin dependent (IDDM), uncontrolled Code(s): E10.65 - TYPE 1 DIABETES MELLITUS WITH HYPERGLYCEMIA (7) Hypothyroid Code(s): E03.9 - HYPOTHYROIDISM, UNSPECIFIED Qualifiers: Hypothyroidism type: unspecified Qualified Code(s): E03.9 - Hypothyroidism, unspecified (8) Obesity Code(s): E66.9 - OBESITY, UNSPECIFIED (9) Pneumonia Code(s): J18.9 - PNEUMONIA, UNSPECIFIED ORGANISM Assessment/Plan (1) Chest painR/O ACS/PE/Teitz syndrome: CT Angio Negative Code(s): R07.9 - CHEST PAIN, UNSPECIFIED Qualifiers: Chest pain type: unspecified Qualified Code(s): R07.9 - Chest pain, unspecified (2) Chronic systolic (congestive) heart failure Code(s): I50.22 - CHRONIC SYSTOLIC (CONGESTIVE) HEART FAILURE (3) Cardiomyopathy/ S/P Cath Code(s): I42.9 - CARDIOMYOPATHY, UNSPECIFIED (4) Acute bronchitis: ID consult Pt is patially Rx at [place] still has residual severe cough and productive Yellow sputum On Unasyn Now Code(s): J20.9 - ACUTE BRONCHITIS, UNSPECIFIED (5) Asthma exacerbation: Secondary to Pneumonia partially Rx at [place] Visit Recently Code(s): J45.901 - UNSPECIFIED ASTHMA WITH (ACUTE) EXACERBATION (6) Diabetes mellitus, insulin dependent (IDDM), uncontrolled Code(s): E10.65 - TYPE 1 DIABETES MELLITUS WITH HYPERGLYCEMIA (7) Hypothyroid Code(s): E03.9 - HYPOTHYROIDISM, UNSPECIFIED Qualifiers: Hypothyroidism type: unspecified Qualified Code(s): E03.9 - Hypothyroidism, unspecified (8) Obesity Code(s): E66.9 - OBESITY, UNSPECIFIED (9) Pneumonia Code(s): J18.9 - PNEUMONIA, UNSPECIFIED ORGANISM spoke with ID today as Pt is not having proper IV acess Pt will be on Augmentin PO
[2016-10-15] MEDS: ATORVASTATIN CA 10 MG TABLET (FP) PO SCH ×2 (21:49→21:52)
[2016-10-15] MEDS: MONTELUKAST NA 10 MG TABLET PO SCH (21:49)
[2016-10-16] MEDS: guaiFENesin/D-M SUGAR-FREE/ACLHOL-FREE 118 ML BOTTLE PO SCH ×4 (00:01→17:20)
[2016-10-16] MEDS: INSULIN SLIDING SCALE (NOVOLOG) 1 VIAL SQ SCH ×3 (06:29→17:20)
[2016-10-16] MEDS: LEVOTHYROXINE NA 75 MCG TABLET (FP) PO SCH (06:29)
[2016-10-16] MEDS: ALBUTEROL SO4 2.5/IPRATROPIUM 0.5 INH SOL 3 ML VIAL.NEB. NEB SCH ×4 (06:30→18:10)
[2016-10-16] MEDS ORDERED: PT OWN MED DRAWER 7, Y5N ONE (10:08)
[2016-10-16] MEDS: SACUBITRIL/VALSARTAN 24 MG-26 MG TABLET PO SCH (10:24)
[2016-10-16] MEDS: CARVEDILOL 25 MG TABLET (FP) PO SCH (10:24)
[2016-10-16] MEDS: ASPIRIN COATED 81 MG TABLET.EC PO SCH (10:24)
[2016-10-16] MEDS: PANTOPRAZOLE 20 MG TABLET (FP) PO SCH (10:24)
[2016-10-16] MEDS: EPLERENONE 25 MG TABLET PO SCH (10:24)
[2016-10-16] MEDS: FUROSEMIDE 40 MG TABLET (FP) PO SCH (10:25)
[2016-10-16] MEDS: AMOX TR/POT CLAV 875MG/125MG TABLETS (FP) PO SCH ×2 (10:25→17:20)
[2016-10-16] MEDS: predniSONE 10 MG TABLET (UD) PO SCH (10:25)
[2016-10-16] MEDS ORDERED: INSULIN (NOVOLOG) ASPART 100 UNITS/ML 10ML VIAL ONE (11:06)
--- NOTE | 2016-10-16 13:14 | PN ---
Progress Note, Physician Chief Complaint: Chest pain/Fever 10 days/ Dilated cardiomyopathy/Asthma excerbation/ Decompensated CHF History of Present Illness: 56 year old female had travelled to [place] and had fever of 101 for 10 days, Pt was Rx there with Zithromax and Pt managed to come back but was having severe cough/ Bronchitis with Productuve yellow sputum with c/o shortness of breath and chest pain that is worse in the last 2 days. reports chest pain " heaviness, my heart is hurting" . Pt is still having chest pain/ Retrosternal hevy ness 11/26. Pain is more on coughing patient with history of CHF, hypothyroidism, pacemaker, hypercholesteremia, IDDM , S/P Hystrectomy, Colostomy/ closure, Obesity,S/P Cath at [facility]. Pt is relatively better Pt is having difficult IV access - Current Medication List Current Medications: Active Medications Albuterol/Ipratropium (Duoneb -) 1 amp NEB QIDR [facility] Stop: 10/19/16 00:00 Last Admin: 10/16/16 11:20 Dose: 1 amp Amoxicillin/Clavulanate Potassium (Augmentin - 875mg Tablet) 1 tab PO BID@0800, 1730 [facility] Last Admin: 10/16/16 10:25 Dose: 1 tab Aspirin (Ecotrin -) 81 mg PO DAILY [facility] Last Admin: 10/16/16 10:24 Dose: 81 mg Atorvastatin Calcium (Lipitor -) 10 mg PO HS [facility] Last Admin: 10/15/16 21:52 Dose: Not Given Carvedilol (Coreg -) 25 mg PO BID [facility] Last Admin: 10/16/16 10:24 Dose: 25 mg Eplerenone (Eplerenone) 25 mg PO DAILY [facility] Last Admin: 10/16/16 10:24 Dose: 25 mg Furosemide (Lasix -) 40 mg PO DAILY [facility] Last Admin: 10/16/16 10:25 Dose: 40 mg Guaifenesin (Diabetic Tussin Dm -) 10 ml PO Q6HPO [facility] Last Admin: 10/16/16 11:24 Dose: 10 ml Insulin Aspart (Novolog Vial Sliding Scale -) 1 vial SQ TIDAC [facility] PRN Reason: Protocol Last Admin: 10/16/16 11:24 Dose: 4 units Levothyroxine Sodium (Synthroid -) 75 mcg PO DAILY@0700 [facility] Last Admin: 10/16/16 06:29 Dose: 75 mcg Montelukast Sodium (Singulair -) 10 mg PO HS [facility] Last Admin: 10/15/16 21:49 Dose: 10 mg Pantoprazole Sodium (Protonix -) 20 mg PO DAILY [facility] Last Admin: 10/16/16 10:24 Dose: 20 mg Prednisone (Deltasone -) 10 mg PO BID [facility] Last Admin: 10/16/16 10:25 Dose: 10 mg - Objective Vital Signs: Vital Signs Temperature 98.5 F 10/16/16 08:59 Pulse Rate 80 10/16/16 11:20 Respiratory Rate 18 10/16/16 08:59 Blood Pressure 152/75 10/16/16 08:59 O2 Sat by Pulse Oximetry (%) 98 10/16/16 11:20 Constitutional: Yes: Well Nourished, No Distress Eyes: Yes: WNL, Conjunctiva Clear HENT: Yes: Atraumatic, Normocephalic Neck: Yes: Supple, Trachea Midline Cardiovascular: Yes: Regular Rate and Rhythm Respiratory: Yes: Regular, CTA Bilaterally Gastrointestinal: Yes: Normal Bowel Sounds, Soft Labs: CBC, BMP 10/12/16 05:40 10/12/16 05:40 INR, PTT INR 0.96 (0.82-1.09) 10/11/16 02:10 Problem List - Problems (1) Chest pain Code(s): R07.9 - CHEST PAIN, UNSPECIFIED Qualifiers: Chest pain type: unspecified Qualified Code(s): R07.9 - Chest pain, unspecified (2) Chronic systolic (congestive) heart failure Code(s): I50.22 - CHRONIC SYSTOLIC (CONGESTIVE) HEART FAILURE (3) Cardiomyopathy Code(s): I42.9 - CARDIOMYOPATHY, UNSPECIFIED (4) Acute bronchitis Code(s): J20.9 - ACUTE BRONCHITIS, UNSPECIFIED Qualifiers: Bronchitis organism: unspecified organism Qualified Code(s): J20.9 - Acute bronchitis, unspecified (5) Asthma exacerbation Code(s): J45.901 - UNSPECIFIED ASTHMA WITH (ACUTE) EXACERBATION (6) Diabetes mellitus, insulin dependent (IDDM), uncontrolled Code(s): E10.65 - TYPE 1 DIABETES MELLITUS WITH HYPERGLYCEMIA (7) Hypothyroid Code(s): E03.9 - HYPOTHYROIDISM, UNSPECIFIED Qualifiers: Hypothyroidism type: unspecified Qualified Code(s): E03.9 - Hypothyroidism, unspecified (8) Obesity Code(s): E66.9 - OBESITY, UNSPECIFIED (9) Pneumonia Code(s): J18.9 - PNEUMONIA, UNSPECIFIED ORGANISM
[2016-10-16 14:37] VITALS: BP 124/98; PULSE 68; TEMP 98.7
--- NOTE | 2016-10-16 15:52 | PN ---
Progress Note, Physician History of Present Illness: stable doing well now much better - Current Medication List Current Medications: Active Medications Albuterol/Ipratropium (Duoneb -) 1 amp NEB QIDR [facility] Stop: 10/19/16 00:00 Last Admin: 10/16/16 11:20 Dose: 1 amp Amoxicillin/Clavulanate Potassium (Augmentin - 875mg Tablet) 1 tab PO BID@0800, 1730 [facility] Last Admin: 10/16/16 10:25 Dose: 1 tab Aspirin (Ecotrin -) 81 mg PO DAILY [facility] Last Admin: 10/16/16 10:24 Dose: 81 mg Atorvastatin Calcium (Lipitor -) 10 mg PO [facility] Last Admin: 10/15/16 21:52 Dose: Not Given Carvedilol (Coreg -) 25 mg PO BID [facility] Last Admin: 10/16/16 10:24 Dose: 25 mg Eplerenone (Eplerenone) 25 mg PO DAILY [facility] Last Admin: 10/16/16 10:24 Dose: 25 mg Furosemide (Lasix -) 40 mg PO DAILY [facility] Last Admin: 10/16/16 10:25 Dose: 40 mg Guaifenesin (Diabetic Tussin Dm -) 10 ml PO Q6HPO [facility] Last Admin: 10/16/16 11:24 Dose: 10 ml Insulin Aspart (Novolog Vial Sliding Scale -) 1 vial SQ TIDAC [facility] PRN Reason: Protocol Last Admin: 10/16/16 11:24 Dose: 4 units Levothyroxine Sodium (Synthroid -) 75 mcg PO DAILY@0700 [facility] Last Admin: 10/16/16 06:29 Dose: 75 mcg Montelukast Sodium (Singulair -) 10 mg PO [facility] Last Admin: 10/15/16 21:49 Dose: 10 mg Pantoprazole Sodium (Protonix -) 20 mg PO DAILY [facility] Last Admin: 10/16/16 10:24 Dose: 20 mg Prednisone (Deltasone -) 10 mg PO BID [facility] Last Admin: 10/16/16 10:25 Dose: 10 mg - Objective Vital Signs: Vital Signs Temperature 98.7 F 10/16/16 14:36 Pulse Rate 68 10/16/16 14:36 Respiratory Rate 18 10/16/16 14:36 Blood Pressure 124/98 10/16/16 14:36 O2 Sat by Pulse Oximetry (%) 98 10/16/16 11:20 Constitutional: Yes: No Distress, Calm Neck: Yes: Supple Cardiovascular: Yes: Regular Rate and Rhythm Respiratory: Yes: Regular, CTA Bilaterally, Rhonchi Gastrointestinal: Yes: Normal Bowel Sounds, Soft Musculoskeletal: Yes: WNL Extremities: Yes: WNL Neurological: Yes: Alert, Oriented Psychiatric: Yes: Alert, Oriented Labs: CBC, BMP 10/12/16 05:40 10/12/16 05:40 INR, PTT INR 0.96 (0.82-1.09) 10/11/16 02:10 Assessment/Plan Problem List - Problems (1) Chest pain Code(s): R07.9 - CHEST PAIN, UNSPECIFIED Qualifiers: Chest pain type: unspecified Qualified Code(s): R07.9 - Chest pain, unspecified (2) Chronic systolic (congestive) heart failure Code(s): I50.22 - CHRONIC SYSTOLIC (CONGESTIVE) HEART FAILURE (3) Cardiomyopathy Code(s): I42.9 - CARDIOMYOPATHY, UNSPECIFIED (4) Acute bronchitis Code(s): J20.9 - ACUTE BRONCHITIS, UNSPECIFIED Qualifiers: Bronchitis organism: unspecified organism Qualified Code(s): J20.9 - Acute bronchitis, unspecified (5) Asthma exacerbation Code(s): J45.901 - UNSPECIFIED ASTHMA WITH (ACUTE) EXACERBATION (6) Diabetes mellitus, insulin dependent (IDDM), uncontrolled Code(s): E10.65 - TYPE 1 DIABETES MELLITUS WITH HYPERGLYCEMIA (7) Hypothyroid Code(s): E03.9 - HYPOTHYROIDISM, UNSPECIFIED Qualifiers: Hypothyroidism type: unspecified Qualified Code(s): E03.9 - Hypothyroidism, unspecified (8) Obesity Code(s): E66.9 - OBESITY, UNSPECIFIED (9) Pneumonia Code(s): J18.9 - PNEUMONIA, UNSPECIFIED ORGANISM plan continue oral abx incentive susi cardio on case blood sugar control patient improving
[2016-10-17] MEDS ORDERED: ALBUTEROL SO4 2.5/IPRATROPIUM 0.5 INH SOL 3 ML VIAL.NEB. NEB SCH (12:00)
== END 2016-10-16 18:40 | disposition home or self-care (01) | DRG 202 ==
LOC: SUPCPDRO 23:55 → JER 23:55 → JERBED 10-11 05:45 → J4W 10-11 08:37 → J7W 10-13 19:02
PROVIDERS: ADMIT Internal Medicine; ATTEND Internal Medicine
DX: J20.9 Acute bronchitis, unspecified (principal); J18.9 Pneumonia, unspecified organism; I42.8 Other cardiomyopathies; I50.22 Chronic systolic (congestive) heart failure; J45.901 Unspecified asthma with (acute) exacerbation; E03.9 Hypothyroidism, unspecified; R07.89 Other chest pain; E11.311 Type 2 diabetes mellitus with unspecified diabetic retinopathy with macular edema; E11.65 Type 2 diabetes mellitus with hyperglycemia; E78.00 Pure hypercholesterolemia, unspecified; E66.8 Other obesity; Z68.35 Body mass index [BMI] 35.0-35.9, adult; I11.0 Hypertensive heart disease with heart failure; Z79.01 Long term (current) use of anticoagulants; Z71.3 Dietary counseling and surveillance
CPT/HCPCS: 36415; 71020-TC; 71275-TC; 80053; 80061; 82550; 83721; 83735; 83880; 84484; 85025; 85379; 85610; 93005; 93010; 93306-TC; 94640; 99284-25